=== PATIENT | male | born 1950 | race Caucasian/White ===

== ENCOUNTER 2019-03-01 00:28 | Inpatient (IN) | payer MEDICARE ==
[2019-03-01] VITALS (14 sets, daily range): BP systolic 95–128; BP diastolic 36–77
[~2019-03-01] VITALS: Ht 170.2 cm; Wt 111.6 kg
--- NOTE | 2019-03-01 00:33 | ED.ADGEN ---
Past History Past Medical History: Anemia, Anxiety, Arthritis, Arrhythmia, Asthma, Bipolar, Bronchitis, CAD, CHF, Constipation, COPD, CVA, Depression, Diabetes, GERD, High Cholesterol, Heart Disease, Hypertension, Hypothyroid, Lung Disease, [place], Renal Disease, Schizophrenia, Stroke, TIA, Other Past Surgical History: Coronary Bypass Surgery, Other Smoking: Cigarettes Alcohol Use: Occasionally Adult General Chief Complaint Chief Complaint ". .. I went to get up.. to go to bed.. but I got dizzy... I fell and hit the back of my head... I still tried to crawl to bed.. but I was to dizzy and to sore to make it..".." HPI HPI Patient is a 68 year old male ID pt. who presents with above history and complaints of dizziness, syncope and head injury. Pt normally follows at ID, but defer to [facility] [place]. Patient is oxygen-dependent COPD at 3 L, , hx CADZ with bypass., DM, CVA hx. and multiple medical issues. Pt. had a dizzy syncope episode with fall striking his head. Pt. feels he had a transient episode of loss of consciousness. The dizziness prior to fall has never resolved, when he attempts to stand or sit up. Patient denies any new focal signs other than his complaints of dizziness from his prior CVAs. Patient does continue to smoke. Has oxygen dependent at 3 L on presentation. Patient gives a current problem list of asthma, nontraumatic rupture achilles tendon, arthritis, hyperlipidemia, anxiety disorder, depression, post traumatic stress disorder, diabetes, COPD, personality disorder, hypertension, diabetic neuropathy, insomnia, schizoaffective disorder, urgent rhinitis, GERD, night terrors, prostatic hyperplasia ventral hernia, chronic systolic heart failure, coronary artery disease, fibromyalgia, frequent falls, fractured metatarsal, constipation, left bundle branch block, obesity, chronic renal insufficiency, chronic pain, bipolar, pneumonia episodes, bronchitis, angina, and history of MRSA. Pt. is a resident of [facility]. Pt. states he's been compliant with his chronic meds and does not think he took an extra dose of hypertension meds in the last 24 hours. In the ED his blood pressure remained low and he became dizzy anytime he attempted to stand or set up. Review of Systems Review of Systems Constitutional: Denies fever or chills [] Eyes: Denies change in visual acuity, redness, or eye pain [] HENT: Denies nasal congestion or sore throat []complaints of head injury Respiratory: Denies cough or shortness of breath [] Cardiovascular: No additional information not addressed in HPI [] GI: Denies abdominal pain, nausea, vomiting, bloody stools or diarrhea [] : Denies dysuria or hematuria [] Musculoskeletal: Denies back pain or joint pain [] Integument: Denies rash or skin lesions [] Neurologic: Complaints of headache, denies any new, focal weakness or sensory changes. Patient complaints of dizziness Endocrine: Denies polyuria or polydipsia [] All other systems were reviewed and found to be within normal limits, except as documented in this note. Family History Family History Noncontributory Current Medications Current Medications See nursing for home medications Allergies Allergies Penicillin diazepam Physical Exam Physical Exam Constitutional: Moderate acute distress, non-toxic appearance. [] HENT: Normocephalic, 4 x 4 centimeter hematoma right scalp, bilateral external ears normal, oropharynx moist, no oral exudates, nose normal. [] Eyes: PERRLA, EOMI, conjunctiva mild injection, no discharge. [] Neck: Has midline Cervical tenderness,, no stridor. [] Cardiovascular:Heart rate regular rhythm, no murmur, PMI to the left Lungs & Thorax: Bilateral breath equal at apex with scattered wheezing throughout on auscultation []midline scar and subclavian scars Abdomen: Bowel sounds normal, soft, no tenderness, no masses, no pulsatile masses. [] Obese. Old surgery scars Skin: Warm, dry, Areas of skin lesions that have been picked. Poor turgor Back: No tenderness, no CVA tenderness. [] Extremities: No tenderness, no cyanosis, no clubbing, ankle edema. [] Does complain of tenderness in joints with movement-chronic problem Neurologic: Alert and oriented X 3, moves all extremities on request, decreased plantar sensory function, she reports no new focal defects from his previous strokes with the exception of dizziness] Psychologic: Affect anxious, judgement normal, mood normal. [] Current Patient Data Vital Signs Vital Signs Date Time Temp Pulse Resp B/P (MAP) Pulse Ox O2 Delivery O2 Flow Rate FiO2 03/01/19 00:32 72 20 126/102 (110) 98 Nasal Cannula 3.0 Lab Results Laboratory Tests Test 03/01/19 00:35 White Blood Count 10.9 x10^3/uL (4.0-11.0) Red Blood Count 3.93 x10^6/uL (4.30-5.70) L Hemoglobin 12.0 g/dL (13.0-17.5) L Hematocrit 36.3 % (39.0-53.0) L Mean Corpuscular Volume 92 fL (79-100) Mean Corpuscular Hemoglobin 31 pg (25-35) Mean Corpuscular Hemoglobin Concent 33 g/dL (31-37) Red Cell Distribution Width 14.5 % (11.5-14.5) Platelet Count 200 x10^3/uL (140-400) Neutrophils (%) (Auto) 70 % (31-73) Lymphocytes (%) (Auto) 17 % (24-48) L Monocytes (%) (Auto) 9 % (0-9) Eosinophils (%) (Auto) 4 % (0-3) H Basophils (%) (Auto) 1 % (0-3) Neutrophils # (Auto) 7.6 x10^3uL (1.8-7.7) Lymphocytes # (Auto) 1.8 x10^3/uL (1.0-4.8) Monocytes # (Auto) 1.0 x10^3/uL (0.0-1.1) Eosinophils # (Auto) 0.5 x10^3/uL (0.0-0.7) Basophils # (Auto) 0.1 x10^3/uL (0.0-0.2) Erythrocyte Sedimentation Rate 35 (0-15) H Prothrombin Time 10.6 SEC (9.4-11.4) Prothrombin Time INR 1.0 (0.9-1.1) Activated Partial Thromboplast Time 25 SEC (23-33) D-Dimer (Shalini) 4.15 mg/L (0.00-0.50) H Sodium Level 136 mmol/L (136-145) Potassium Level 4.5 mmol/L (3.5-5.1) Chloride Level 99 mmol/L (98-107) Carbon Dioxide Level 25 mmol/L (21-32) Anion Gap 12 (6-14) Blood Urea Nitrogen 61 mg/dL (8-26) H Creatinine 2.6 mg/dL (0.7-1.3) H Estimated GFR (Cockcroft-Gault) 24.7 Glucose Level 163 mg/dL (70-99) H Calcium Level 8.4 mg/dL (8.5-10.1) L Magnesium Level 2.4 mg/dL (1.8-2.4) Total Bilirubin 0.4 mg/dL (0.2-1.0) Direct Bilirubin 0.1 mg/dL (0.0-0.2) Aspartate Amino Transferase (AST) 16 U/L (15-37) Alanine Aminotransferase (ALT) 16 U/L (16-63) Alkaline Phosphatase 80 U/L (46-116) Creatine Kinase 87 U/L (39-308) Troponin I Quantitative < 0.017 ng/mL (0-0.055) KM-Esx-J-Type Natriuretic Peptide 1002 pg/mL (0-124) H Total Protein 7.0 g/dL (6.4-8.2) Albumin 3.4 g/dL (3.4-5.0) Lipase 110 U/L (73-393) EKG EKG EKG shows a sinus rhythm at 68 bpm interventricular block[], leftward axis Radiology/Procedures Radiology/Procedures [[address] [address] IMAGING REPORT Signed PATIENT: PARMINDER EDMOND ACCOUNT: [id number] : 1950 LOCATION: ICU AGE: 68 SEX: M EXAM STATUS: ADM IN ORD. PHYSICIAN: ROLDAN WHITFIELD MD REASON: central line placement PROCEDURE: CHEST AP ONLY CHEST AP ONLY Clinical History: Central line placement Technique: AP view of the chest was obtained at 03/01/2019 5:06 AM. Comparison: 12:49 AM. Findings: The cardiomediastinal silhouette is normal. The pulmonary vasculature is normal. The lungs and pleural margins are clear. There are median sternotomy wires. There has been interval placement of a left subclavian line is tip is seen in the high SVC near the confluence of great veins. There is no pneumothorax. Impression: No evidence of an acute cardiopulmonary process. The left subclavian line has its tip in the high SVC near the confluence of the great veins. It may be helpful to advance this line approximately 6 cm. Electronically signed by: Carlos Douglas III, MD (03/01/2019 6:16 AM) [facility] DICTATED AND SIGNED BY: CARLOS DOUGLAS III, MD DATE: 03/01/19 0680 CC: ROLDAN WHITFIELD MD; YELENA GARCIA MD; PCP,UNKNOWN ~ [place] [address] IMAGING REPORT Signed PATIENT: PARMINDER EDMOND ACCOUNT: [id number] : 1950 LOCATION: ER AGE: 68 SEX: M EXAM STATUS: REG ER ORD. PHYSICIAN: ROLDAN WHITFIELD MD REASON: Dizzy , fall, CADZ, O2 dep. COPD PROCEDURE: PORTABLE CHEST 1V PORTABLE CHEST 1V Clinical History: Dizziness fall Technique: AP view of the chest was obtained at 03/01/2019 12:33 AM. Comparison: None. Findings: There is mediastinal wires. The heart is top normal limits in size. Multivessel peripheral. There is vague linear opacities in the lung bases. Impression: Mild basal infiltrates likely discoid atelectasis. Electronically signed by: Carlos Douglas III, MD (03/01/2019 1:09 AM) [facility] DICTATED AND SIGNED BY: CARLOS DOUGLAS III, MD DATE: 03/01/19 010 CC: ROLDAN WHITFIELD MD; PCP,NO ~ ][address] [address] IMAGING REPORT Signed PATIENT: PARMINDER EDMOND ACCOUNT: [id number] : 1950 LOCATION: ER AGE: 68 SEX: M EXAM STATUS: REG ER ORD. PHYSICIAN: ROLDAN WHITFIELD MD REASON: Head Injury, fall, dizzy PROCEDURE: CT HEAD AND CERVICAL SPINE WO CT Head W/O Contrast: History: Head injury fall dizzy Comparison: none Axial images were obtained without contrast. There is moderate diffuse atrophy. There is no mass effect, extraaxial fluid collections or hydrocephalus. There is an old left frontal lobe infarct and old right occipital parietal infarct. There is a small scalp hematoma posteriorly on the right. There is no focal loss of barron-white matter distinction to suggest acute ischemia, i.e. stroke. Impression: Old infarcts. No acute intracranial findings. End impression CT C-Spine without contrast: Clinical History: Technique: Axial helical images of the cervical spine were obtained without contrast, axial coronal and sagittal reconstruction was performed. Findings: There is no loss of vertebral body stature. There is no prevertebral soft tissue swelling. The vertebral bodies are well aligned. The C1-C2 relationship is normal. There is fusion of the C5-C6 vertebral bodies. Evaluation of the central canal is limited without contrast. There is multiple posterior disc bulges resulting in flattening of the thecal sac. There does not appear to be gross flattening of the cervical cord. There is moderate narrowing of multiple neuroforamen. Impression: No acute findings. Clinical correlation suggested. PQRS Compliance Statement: One or more of the following individualized dose reduction techniques were utilized for this examination: 1. Automated exposure control 2. Adjustment of the mA and/or kV according to patient size 3. Use of iterative reconstruction technique Electronically signed by: Carlos Douglas III, MD (03/01/2019 1:16 AM) [facility] DICTATED AND SIGNED BY: CARLOS DOUGLAS III, MD DATE: 03/01/19 0116 CC: ROLDAN WHITFIELD MD; PCP,NO ~ Course & Med Decision Making Course & Med Decision Making Pertinent Labs and Imaging studies reviewed. (See chart for details) Procedure note- Central line placement- patient persisted to have dizziness and hypotension- reviewed risks and benefits of central line placement patient in agreement for placement. Jewel technique used. hat, drapes, gloves face mask. Prepped, IJ and Lt subclavian. Obtained a cannulation of left subclavian by Seldinger technique. Line sutured in place. No obvious pneumothorax post procedure. Levo fed drip started. Stress presentation testing and treatment plan with . Will be admitted for further evaluation and treatment and cardiology consult. Suspect possible drug interaction or overdose of these hypertensive meds. When blood pressure was increased to the systolic range of 100 to his dizziness symptoms resolved. Critical Care- 90 min. [] Final Impression Final Impression 1. Dizzy/ Syncope 2. Fall 3. Head Injury- contusion 4. Hx. COPD- Oxy. Dependent at 3 L 5. Hx. of CADz and CHF 6. Hx of CVA 7. Elevated BNP 1002 8. Anemia Hgb 12 9. Elevated Sed 35 10.DM 163 11. Tobacco Use 12. Elevated D-dimer 4.15 13. Chronic Renal Insuf. Bun 61/Creat 2.6 14, . Multiple Medical Issues Dragon Disclaimer Dragon Disclaimer This electronic medical record was generated, in whole or in part, using a voice recognition dictation system. Dragon Disclaimer This chart was dictated in whole or in part using Voice Recognition software in a busy, high-work load, and often noisy Emergency Department environment. It may contain unintended and wholly unrecognized errors or omissions. ROLDAN WHITFIELD MD Mar 01, 2019 00:33
[2019-03-01 01:00] LABS: BASO # 0.1 x10^3/uL (0.0-0.2); BASO % 1 % (0-3); EOS # 0.5 x10^3/uL (0.0-0.7); EOS % 4 % (0-3); HEMATOCRIT 36.3 % (39.0-53.0); LYMPH # 1.8 x10^3/uL (1.0-4.8); LYMPH % 17 % (24-48); MEAN CORPUSCULAR HEMOGLOBIN 31 pg (25-35); MEAN CORPUSCULAR HGB CONC 33 g/dL (31-37); MEAN CORPUSCULAR VOLUME 92 fL (79-100); MONO % 9 % (0-9); NEUT # 7.6 x10^3uL (1.8-7.7); NEUT % 70 % (31-73); PLATELET COUNT 200 x10^3/uL (140-400); RED BLOOD COUNT 3.93 x10^6/uL (4.30-5.70); RED CELL DISTRIBUTION WIDTH 14.5 % (11.5-14.5); WHITE BLOOD COUNT 10.9 x10^3/uL (4.0-11.0)
--- NOTE | 2019-03-01 01:12 | RAD ---
PORTABLE CHEST 1V Clinical History: Dizziness fall Technique: AP view of the chest was obtained at 03/01/2019 12:33 AM. Comparison: None. Findings: There is mediastinal wires. The heart is top normal limits in size. Multivessel peripheral. There is vague linear opacities in the lung bases. Impression: Mild basal infiltrates likely discoid atelectasis. Electronically signed by: Juan Arora III, MD (03/01/2019 1:09 AM) [facility]
[2019-03-01 01:15] LABS: ALBUMIN 3.4 g/dL (3.4-5.0); CALCIUM 8.4 mg/dL (8.5-10.1); CREATININE 2.6 mg/dL (0.7-1.3); DIRECT BILIRUBIN 0.1 mg/dL (0.0-0.2); GFR 24.7; MAGNESIUM 2.4 mg/dL (1.8-2.4); POTASSIUM 4.5 mmol/L (3.5-5.1); TOTAL BILIRUBIN 0.4 mg/dL (0.2-1.0)
--- NOTE | 2019-03-01 01:19 | RAD ---
CT Head W/O Contrast: History: Head injury fall dizzy Comparison: none Axial images were obtained without contrast. There is moderate diffuse atrophy. There is no mass effect, extraaxial fluid collections or hydrocephalus. There is an old left frontal lobe infarct and old right occipital parietal infarct. There is a small scalp hematoma posteriorly on the right. There is no focal loss of barron-white matter distinction to suggest acute ischemia, i.e. stroke. Impression: Old infarcts. No acute intracranial findings. End impression CT C-Spine without contrast: Clinical History: Technique: Axial helical images of the cervical spine were obtained without contrast, axial coronal and sagittal reconstruction was performed. Findings: There is no loss of vertebral body stature. There is no prevertebral soft tissue swelling. The vertebral bodies are well aligned. The C1-C2 relationship is normal. There is fusion of the C5-C6 vertebral bodies. Evaluation of the central canal is limited without contrast. There is multiple posterior disc bulges resulting in flattening of the thecal sac. There does not appear to be gross flattening of the cervical cord. There is moderate narrowing of multiple neuroforamen. Impression: No acute findings. Clinical correlation suggested. PQRS Compliance Statement: One or more of the following individualized dose reduction techniques were utilized for this examination: 1. Automated exposure control 2. Adjustment of the mA and/or kV according to patient size 3. Use of iterative reconstruction technique Electronically signed by: Juan Arora III, MD (03/01/2019 1:16 AM) [facility]
[2019-03-01] MEDS ORDERED: IV RINGERS SOLUTION,LACTATED 1,000 ML IV SCH (01:30)
[2019-03-01 02:12] LABS: SEDIMENTATION RATE 35 (0-15)
[2019-03-01] MEDS ORDERED: ONDANSETRON PF 4 MG/2 ML VIAL. IV PRN (02:45)
[2019-03-01] MEDS ORDERED: ACETAMINOPHEN 325 MG TABLET PO PRN ×2 (02:45→15:00)
[2019-03-01] MEDS ORDERED: ENOXAPARIN ** NOTE DOSE ** SYRINGE SQ ONE (03:00)
[2019-03-01] MEDS ORDERED: FUROSEMIDE 40 MG/4 ML VIAL IVP ONE ×2 (03:00→06:00)
--- NOTE | 2019-03-01 03:02 | EKG ---
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
[2019-03-01] MEDS ORDERED: ANTI-COAG MONITOR BY PHARMACY. MC PRN (03:15)
[2019-03-01] MEDS ORDERED: NOREPINEPHRINE BITARTRATE 4 MG/4 ML VIAL. IV ONE (04:38)
[2019-03-01] MEDS ORDERED: IV NORMAL SALINE 250ML 250 ML ONE (04:38)
[2019-03-01] MEDS ORDERED: NOREPINEPHRINE BITARTRATE 8 MG in IV NORMAL SALINE 250ML 250 ML IV PRN ×2 (05:00→05:15)
--- NOTE | 2019-03-01 06:19 | RAD ---
CHEST AP ONLY Clinical History: Central line placement Technique: AP view of the chest was obtained at 03/01/2019 5:06 AM. Comparison: 12:49 AM. Findings: The cardiomediastinal silhouette is normal. The pulmonary vasculature is normal. The lungs and pleural margins are clear. There are median sternotomy wires. There has been interval placement of a left subclavian line is tip is seen in the high SVC near the confluence of great veins. There is no pneumothorax. Impression: No evidence of an acute cardiopulmonary process. The left subclavian line has its tip in the high SVC near the confluence of the great veins. It may be helpful to advance this line approximately 6 cm. Electronically signed by: Juan Arora III, MD (03/01/2019 6:16 AM) [facility]
--- NOTE | 2019-03-01 08:45 | NUR ---
Admit to room icu bed 3 via cart accompanied by staff. Alert and oriented, vs stable on levophed drip at 1 mcg/hr , c/o chronic generalized arthritic pain. Oriented to room and explained all procedures.
[2019-03-01] MEDS ORDERED: ASPIRIN 81 MG TAB.CHEW PO SCH (09:00)
[2019-03-01] MEDS ORDERED: AMIT25TA PO (10:04)
[2019-03-01] MEDS ORDERED: CHOL10003 PO (10:04)
[2019-03-01] MEDS ORDERED: IPRA3AMP29 NEB (10:04)
[2019-03-01] MEDS ORDERED: ERGO500027 PO (10:04)
[2019-03-01] MEDS ORDERED: FLUO40CA2 PO (10:04)
[2019-03-01] MEDS ORDERED: ACET325T9 PO (10:04)
[2019-03-01] MEDS ORDERED: BUDE180A IH (10:04)
[2019-03-01] MEDS ORDERED: ALOG25TA2 PO (10:04)
[2019-03-01] MEDS ORDERED: ASPI81TA50 PO (10:04)
[2019-03-01] MEDS ORDERED: AMMO57LO TP (10:04)
[2019-03-01 10:09] LABS: AMPHETAMINE/METHAMPHETAMINE NEG (NEG); BARBITURATES NEG (NEG); BENZODIAZEPINES NEG (NEG); CANNABINOIDS NEG (NEG); COCAINE NEG (NEG); METHADONE NEG (NEG); OPIATES NEG (NEG); PHENCYCLIDINE NEG (NEG)
[2019-03-01] MEDS ORDERED: FURO40TA4 PO (10:09)
[2019-03-01] MEDS ORDERED: GABA-586 PO (10:09)
[2019-03-01] MEDS ORDERED: GLIP10TA13 PO (10:09)
[2019-03-01 10:21] LABS: BACTERIA,URINE 0 /HPF (0-FEW); BILIRUBIN,URINE NEG (NEG); CLARITY,URINE HAZY; COLOR,URINE YELLOW; GLUCOSE,URINE >=1000 mg/dL (NEG); NITRITE,URINE NEG (NEG); RBC,URINE OCC /HPF (0-2); UROBILINOGEN,URINE 0.2 mg/dL (0.2 mg/dL)
[2019-03-01 10:22] LABS: GRANULAR CASTS,URINE FEW /HPF; HYALINE CASTS, URINE FEW /HPF
[2019-03-01 10:23] LABS: SQUAMOUS EPITHELIAL CELL,UR FEW /LPF
[2019-03-01] MEDS ORDERED: NICO-479 BC (10:27)
[2019-03-01] MEDS ORDERED: POTA20TA4 PO (10:27)
[2019-03-01] MEDS ORDERED: PRAZ5CAP2 PO (10:27)
[2019-03-01] MEDS ORDERED: METO-247 PO (10:27)
[2019-03-01] MEDS ORDERED: QUET400T4 PO (10:27)
[2019-03-01] MEDS ORDERED: PRAZ2CAP2 PO (10:27)
[2019-03-01] MEDS ORDERED: XOPENEX HFA15 GM IH (10:27)
[2019-03-01] MEDS ORDERED: MONT10TA80 PO (10:27)
[2019-03-01] MEDS ORDERED: TIOT18CA IH (10:27)
[2019-03-01] MEDS ORDERED: MELO15TA23 PO (10:27)
[2019-03-01] MEDS ORDERED: ISOS60TA2 PO (10:27)
[2019-03-01] MEDS: IPRATRPIUM/ALBUTEROL 0.5/2.5MG 3 ML NEBU. NEB SCH ×3 (11:37→20:39)
--- NOTE | 2019-03-01 12:16 | PDOC2 ---
CONSULT Date of Admission DATE: 03/01/19 TIME: 12:16 Reason for Consult: Syncope Referring Physician: Dr. Prather Chief Complaint Syncope Source: Chart review, Patient Problem List Problems Medical Problems: (1) Syncope Status: Acute History of Present Illness 68-year-old male with history of coronary artery disease s/p CABG, ischemic cardiomyopathy, usually followed by Dr. Ruff at [facility] apparently was time to get out of his bed when he had an episode of syncope. He tried to get up again and passed out and hit his head. He denied any chest pain, orthopnea/PND, palpitations. Past Medical History CAD s/p CABG 2009 with recent cardiac catheterization January 2019 showing patent QUINN to LAD, patent SVG to diagonal and patent SVG to OM. Ischemic cardiomyopathy with recent 2-D echo in January 2019 showing EF 40%. He was apparently on LifeVest that was taken off secondary to improvement in EF. Hypertension COPD Anxiety/depression/bipolar disorder Hyperlipidemia Diabetes mellitus type 2 Hypothyroidism TIA/stroke Chronic kidney disease Past Surgical History Coronary artery bypass surgery Family History not contributory Social History Patient smokes 8 cigarettes on a daily basis and admitted to occasional intake of alcohol. He used to smoke marijuana several years ago but denied any recent drug use. Current Medications Current Medications Lactated Ringer's 1,000 ml @ 100 mls/hr Q10H IV Last administered on 03/01/19 at 01:13; Start 03/01/19 at 01:30; Stop 03/01/19 at 11:29; Status DC Enoxaparin Sodium (Lovenox 100mg Syringe) 100 mg 1X ONCE SQ Last administered on 03/01/19at 03:48; Start 03/01/19 at 03:00; Stop 03/01/19 at 03:01; Status DC Furosemide (Lasix) 40 mg 1X ONCE IVP ; Start 03/01/19 at 03:00; Stop 03/01/19 at 03:01; Status DC Ondansetron HCl (Zofran) 4 mg PRN Q4HRS PRN IV NAUSEA/VOMITING; Start 03/01/19 at 02:45; Stop 03/02/19 at 02:44 Acetaminophen (Tylenol) 650 mg PRN Q4HRS PRN PO FEVER; Start 03/01/19 at 02:45; Stop 03/02/19 at 02:44 Albuterol/ Ipratropium (Duoneb) 3 ml RTQID NEB Last administered on 03/01/19at 11:37; Start 03/01/19 at 08:00; Stop 03/02/19 at 07:59 Enoxaparin Sodium (Lovenox 100mg Syringe) 100 mg BID SQ ; Start 03/01/19 at 21:00 Aspirin (Children'S Aspirin) 81 mg DAILY PO ; Start 03/01/19 at 09:00 Furosemide (Lasix) 40 mg 1X ONCE IVP ; Start 03/01/19 at 06:00; Stop 03/01/19 at 06:01; Status DC Info (Anti-Coagulation Monitoring By Pharmacy) 1 each PRN DAILY PRN MC SEE COMMENTS; Start 03/01/19 at 03:15 Sodium Chloride 250 ml @ As Directed STK-MED ONCE .ROUTE ; Start 03/01/19 at 04:38; Stop 03/01/19 at 04:38; Status DC Norepinephrine Bitartrate (Levophed) 4 mg STK-MED ONCE IV ; Start 03/01/19 at 04:38; Stop 03/01/19 at 04:38; Status DC Norepinephrine Bitartrate 8 mg/ Sodium Chloride 258 ml @ 20.626 mls/ hr CONT PRN IV SEE I/O RECORD Last administered on 03/01/19at 05:06; Start 03/01/19 at 05:00 Norepinephrine Bitartrate 8 mg/ Sodium Chloride 258 ml @ 20.626 mls/ hr CONT PRN IV SEE I/O RECORD; Start 03/01/19 at 05:15; Stop 03/01/19 at 05:09; Status DC Active Scripts Active Reported Spiriva (Tiotropium [employer]) 18 Mcg Cap.w.dev 1 Cap IH DAILY Seroquel (Quetiapine Fumarate) 400 Mg Tablet 1 Tab PO QHS Prazosin Hcl 2 Mg Capsule 1 Cap PO QHS Prazosin Hcl 5 Mg Capsule 1 Cap PO QHS Klor-Con M20 (Potassium Chloride) 20 Meq Tab.er.prt 1 Tab PO DAILY 30 Days Nicotine Lozenge (Nicotine Polacrilex) 2 Mg Lozenge 2 Mg BC PRN Q2HR PRN Singulair Tablet (Montelukast Sodium) 10 Mg Tablet 10 Mg PO DAILY Metoprolol Succinate ( Xl ) (Metoprolol Succinate) 100 Mg Tab.er.24h 1 Tab PO DAILY Meloxicam 15 Mg Tablet 1 Tab PO DAILY 30 Days Xopenex Hfa (Levalbuterol Tartrate) 15 Gm Hfa.aer.ad 2 Puff IH PRN Q4-6HRS PRN Isosorbide Mononitrate Er (Isosorbide Mononitrate) 60 Mg Tab.er.24h 1 Tab PO DAILY Glipizide 10 Mg Tablet 2 Tab PO BID Gabapentin (Gabapentin) 300 Mg Capsule 300 Mg PO TID Furosemide 40 Mg Tablet 1 Tab PO BIDWBKFT/LUIS ALBERTO Fluoxetine Hcl 40 Mg Capsule 1 Cap PO DAILYWBKFT Vitamin D2 (Ergocalciferol (Vitamin D2)) 50,000 Unit Capsule 1 Cap PO WEEKLY 28 Days Vitamin D3 (Cholecalciferol (Vitamin D3)) 1,000 Unit Tablet 2 Tab PO DAILY Pulmicort Flexhaler (Budesonide) 180 Mcg Aer.pow.ba 2 Puff IH BID Aspir-Low (Aspirin) 81 Mg Tablet.dr 1 Tab PO DAILY Amlactin (Ammonium Lactate) 57 Gm Lotion 57 Gm TP PRN BID PRN Amitriptyline Hcl 25 Mg Tablet 1 Tab PO QHS Alogliptin (Alogliptin Benzoate) 25 Mg Tablet 25 Mg PO DAILY Duoneb 0.5-3(2.5) Mg/3 Ml (Albuterol/Ipratropium) 3 Ml Ampul.neb 3 Ml NEB QID Tylenol (Acetaminophen) 325 Mg Tablet 2 Tab PO PRN Q4HRS Allergies: Coded Allergies: Penicillins (Verified Allergy, Unknown, 03/01/19) aripiprazole (Verified Allergy, Unknown, 03/01/19) diazepam (Verified Allergy, Unknown, 03/01/19) PSYCHOLOGICAL ROS: No: Hallucinations Eyes: No: Loss of vision HEENT: No: Sneezing Respiratory: No: Shortness of breath Cardiovascular: No: Chest Pain Gastrointestinal: No: Nausea, Vomiting Neurological: YES: Other (syncope); No: Seizures Skin: No: Rash General: Alert, Oriented X3 HEENT: Atraumatic Lungs: Clear to auscultation Heart: Regular rate Abdomen: Soft Extremities: No edema Psych/Mental Status: Mood NL VITALS Vital Signs Date Time Temp Pulse Resp B/P (MAP) Pulse Ox O2 Delivery O2 Flow Rate FiO2 03/01/19 11:37 97 Nasal Cannula 2.0 03/01/19 11:07 76 20 104/36 (58) 03/01/19 09:00 97.5 Labs Laboratory Tests Test 03/01/19 00:35 03/01/19 09:50 03/01/19 12:01 White Blood Count 10.9 x10^3/uL (4.0-11.0) Red Blood Count 3.93 x10^6/uL (4.30-5.70) Hemoglobin 12.0 g/dL (13.0-17.5) Hematocrit 36.3 % (39.0-53.0) Mean Corpuscular Volume 92 fL (79-100) Mean Corpuscular Hemoglobin 31 pg (25-35) Mean Corpuscular Hemoglobin Concent 33 g/dL (31-37) Red Cell Distribution Width 14.5 % (11.5-14.5) Platelet Count 200 x10^3/uL (140-400) Neutrophils (%) (Auto) 70 % (31-73) Lymphocytes (%) (Auto) 17 % (24-48) Monocytes (%) (Auto) 9 % (0-9) Eosinophils (%) (Auto) 4 % (0-3) Basophils (%) (Auto) 1 % (0-3) Neutrophils # (Auto) 7.6 x10^3uL (1.8-7.7) Lymphocytes # (Auto) 1.8 x10^3/uL (1.0-4.8) Monocytes # (Auto) 1.0 x10^3/uL (0.0-1.1) Eosinophils # (Auto) 0.5 x10^3/uL (0.0-0.7) Basophils # (Auto) 0.1 x10^3/uL (0.0-0.2) Erythrocyte Sedimentation Rate 35 (0-15) Prothrombin Time 10.6 SEC (9.4-11.4) Prothromb Time International Ratio 1.0 (0.9-1.1) Activated Partial Thromboplast Time 25 SEC (23-33) D-Dimer (Shalini) 4.15 mg/L (0.00-0.50) Sodium Level 136 mmol/L (136-145) Potassium Level 4.5 mmol/L (3.5-5.1) Chloride Level 99 mmol/L (98-107) Carbon Dioxide Level 25 mmol/L (21-32) Anion Gap 12 (6-14) Blood Urea Nitrogen 61 mg/dL (8-26) Creatinine 2.6 mg/dL (0.7-1.3) Estimated GFR (Cockcroft-Gault) 24.7 Glucose Level 163 mg/dL (70-99) Calcium Level 8.4 mg/dL (8.5-10.1) Magnesium Level 2.4 mg/dL (1.8-2.4) Total Bilirubin 0.4 mg/dL (0.2-1.0) Direct Bilirubin 0.1 mg/dL (0.0-0.2) Aspartate Amino Transf (AST/SGOT) 16 U/L (15-37) Alanine Aminotransferase (ALT/SGPT) 16 U/L (16-63) Alkaline Phosphatase 80 U/L (46-116) Creatine Kinase 87 U/L (39-308) Troponin I Quantitative < 0.017 ng/mL (0-0.055) JI-Zpv-E-Type Natriuretic Peptide 1002 pg/mL (0-124) Total Protein 7.0 g/dL (6.4-8.2) Albumin 3.4 g/dL (3.4-5.0) Lipase 110 U/L (73-393) Thyroid Stimulating Hormone (TSH) 1.504 uIU/mL (0.358-3.740) Urine Collection Type Unknown Urine Color Yellow Urine Clarity Hazy Urine pH 5.0 Urine Specific [place] 1.010 Urine Protein Neg (NEG-TRACE) Urine Glucose (UA) >=1000 mg/dL (NEG) Urine Ketones (Stick) Neg mg/dL (NEG) Urine Blood Neg (NEG) Urine Nitrite Neg (NEG) Urine Bilirubin Neg (NEG) Urine Urobilinogen Dipstick 0.2 mg/dL (0.2 mg/dL) Urine Leukocyte Esterase Neg (NEG) Urine RBC Occ /HPF (0-2) Urine WBC 1-4 /HPF (0-4) Urine Squamous Epithelial Cells Few /LPF Urine Transitional Epithelial Cells Occ /LPF Urine Bacteria 0 /HPF (0-FEW) Urine Hyaline Casts Few /HPF Urine Granular Casts Few /HPF Urine Mucus Slight /LPF Urine Opiates Screen Neg (NEG) Urine Methadone Screen Neg (NEG) Urine Barbiturates Neg (NEG) Urine Phencyclidine Screen Neg (NEG) Urine Amphetamine/Methamphetamine Neg (NEG) Urine Benzodiazepines Screen Neg (NEG) Urine Cocaine Screen Neg (NEG) Urine Cannabinoids Screen Neg (NEG) Urine Ethyl Alcohol Neg (NEG) Glucose (Fingerstick) 319 mg/dL (70-99) Assessment/Plan 1. Syncope most probably secondary to dehydration/hypovolemia. BUN/Cr prerenal picture. Recommend intravenous hydration. Hold diuretics for now and resume at lower dose prior to discharge. We will consider event monitor as outpatient to rule out any significant arrhythmias. 2. Coronary artery disease s/p CABG in 2009 with recent cardiac catheterization in January 2019 showing patent QUINN to LAD, patent SVG to diagonal and patent SVG to OM. He is presently chest pain-free. Continue current secondary prevention measures. 3. Chronic systolic heart failure, ischemic cardio myopathy with LVEF 40% in January 2019. BNP slightly elevated but CXR and clinical exam not consistent with CHF. Continue current medical regimen. 4. Hypertension: Controlled 5. Diabetes mellitus type 2: Treated per IM Thank you for your consultation INES PRIETO MD Mar 01, 2019 12:16
[2019-03-01] MEDS ORDERED: DEXTROSE 50% 25 GM / 50ML DISP.SYRIN. IV PRN (12:45)
--- NOTE | 2019-03-01 14:01 | RAD ---
EXAM: Bilateral lower extremity venous Doppler. HISTORY: Bilateral lower extremity pain/swelling. Elevated d-dimer. COMPARISON: None. FINDINGS: Grayscale and Doppler analysis of the both lower extremity deep venous systems was performed with graded compression and augmentation. The common femoral, greater saphenous, superficial femoral, popliteal and calf veins were assessed. There is no evidence of deep venous thrombosis. IMPRESSION: 1. No evidence of deep venous thrombosis. Electronically signed by: Courtney Kang MD (03/01/2019 1:58 PM) [facility]
--- NOTE | 2019-03-01 14:14 | RAD ---
EXAM: Carotid Doppler sonogram. HISTORY: Cerebral infarction. TECHNIQUE: Sullivan scale and color Doppler sonographic evaluation of the neck with spectral waveform analysis was performed and static images are submitted for review. FINDINGS: The peak systolic velocity within the right common carotid artery is 130 cm/sec. The peak systolic velocity within the right internal carotid artery is 112 cm/sec and the end diastolic velocity within the right internal carotid artery is 33 cm/sec. The right ICA/CCA ratio is 0.86. The peak systolic velocity within the left common carotid artery is 181 cm/sec. The peak systolic velocity within the left internal carotid artery is 118 cm/sec and the end diastolic velocity within the left internal carotid artery is 35 cm/sec. The left ICA/CCA ratio is 0.65. There is normal antegrade flow within both vertebral arteries. IMPRESSION: No evidence of greater than 50 percent stenosis involving the internal carotid arteries. PQRS Compliance Statement - Stenosis calculations for CT, MR and conventional angiography are based upon measurement of the distal ICA diameter in accordance with the NASCET methodology. Stenosis calculations for carotid ultrasound studies are derived from validated velocity criteria which are known to correlate with the NASCET methodology. Electronically signed by: Annika Justin MD (03/01/2019 2:11 PM) [facility]
[2019-03-01] MEDS ORDERED: NON FORMULARY ITEM (Levalbuterol Tartrate (Xopenex Hfa) 2 PUFF) IH PRN (15:00)
[2019-03-01] MEDS ORDERED: AMMONIUM LACTATE 12% TOPICAL LOTION 226GM BOTTLE. TP PRN (15:00)
[2019-03-01] MEDS ORDERED: NICOTINE POLACRILEX GUM 2 MG GUM. BC PRN (15:45)
[2019-03-01] MEDS ORDERED: MELOXICAM 15 MG TABLET. PO ONE (16:00)
[2019-03-01] MEDS ORDERED: NAPROXEN 500 MG TABLET PO PRN (16:30)
[2019-03-01] MEDS ORDERED: IPRATRPIUM/ALBUTEROL 0.5/2.5MG 3 ML NEBU. NEB SCH (17:00)
[2019-03-01] MEDS: INSULIN LISPRO 300 UNITS/3 ML VIAL. SQ SCH (17:00)
[2019-03-01] MEDS: glipiZIDE 5 MG TABLET PO SCH (17:07)
--- NOTE | 2019-03-01 17:11 | RAD ---
Ventilation perfusion exam History: Syncope Comparison: None Findings: Ventilation perfusion examination was performed. Ventilation images were acquired after the patient inhaled 11.0 mCi of technetium 99 DTPA. Perfusion images were acquired after the patient was injected with 5.5 mCi of technetium 99m MAA. There is moderate heterogeneity of radiotracer on perfusion images. No mismatched perfusion defect is identified. Impression: Intermediate probability for pulmonary embolic disease. Electronically signed by: Geoffrey Pretty MD (03/01/2019 5:08 PM) [facility]
--- NOTE | 2019-03-01 17:24 | RAD ---
EXAM: Right ankle, 3 views. HISTORY: Fall. COMPARISON: None. FINDINGS: 3 views of the right ankle are obtained. There is a nondisplaced inferior medial malleolar fracture. There is a tiny corticated ossicle inferior to the lateral malleolus which is chronic in appearance. There is a tiny plantar spur. There is enthesopathy at the Achilles tendon insertion. There is soft tissue swelling. IMPRESSION: Nondisplaced medial malleolar fracture. Electronically signed by: Annika Justin MD (03/01/2019 5:21 PM) [facility]
[2019-03-01] MEDS: PRAZOSIN 1 MG CAPSULE. PO SCH (20:16)
[2019-03-01] MEDS: QUEtiapine 100 MG TABLET. PO SCH (20:17)
[2019-03-01] MEDS: GABAPENTIN 300 MG CAPSULE. PO SCH (20:17)
[2019-03-01] MEDS: AMITRIPTYLINE HCL 25 MG TABLET PO SCH (20:17)
[2019-03-01] MEDS: PRAZOSIN 5 MG CAPSULE. PO SCH (20:17)
[2019-03-01] MEDS: ENOXAPARIN ** NOTE DOSE ** SYRINGE SQ SCH (20:18)
[2019-03-01] MEDS: BUDESONIDE 0.5 MG/2 ML NEBU NEB SCH (20:39)
[2019-03-01] MEDS ORDERED: NON FORMULARY ITEM (Budesonide (Pulmicort Flexhaler) 2 PUFF) IH SCH (21:00)
[2019-03-01] MEDS: oxyCODONE/APAP 5/325 1 TAB TABLET PO PRN (22:25)
[2019-03-02] VITALS (24 sets, daily range): BP systolic 75–120; BP diastolic 36–70
--- NOTE | 2019-03-02 01:16 | RAD ---
3 views left knee AP lateral oblique HISTORY: Pain, multiple falls There is marginal spurring and joint loss of the medial compartment. There is no interruption of cortex suggestive of fracture. IMPRESSION: Degenerative changes. No acute findings. Electronically signed by: Juan Arora III, MD (03/02/2019 1:13 AM) [facility]
--- NOTE | 2019-03-02 03:31 | EKG ---
[address] [address] Test Date: 2019-03-01 Test Time: 00:38:27 Pat Name: PARMINDER EDMOND Department: Room: ICU03 1 Gender: M Telephonic Rn: : 1950 Requested By: ROLDAN WHITFIELD Order Number: [id number] Reading MD: Niknuj Eaton MD Measurements Intervals [place] Rate: 66 P: -2 WI: 210 QRS: -3 QRSD: 128 T: 90 QT: 452 QTc: 476 Interpretive Statements SINUS RHYTHM LAFB Electronically Signed On 03-16-2019 9:08:01 [employer]FER [employer] by Nikunj Eaton MD
--- NOTE | 2019-03-02 03:43 | HP ---
ADMIT DATE: 03/01/2019 HISTORY OF PRESENT ILLNESS: The patient is a 68-year-old male patient who apparently went to get up to go to bed and felt dizzy and fell and hit the back of his head. He tried to crawl to bed, but he was too dizzy and too sore to make it. He normally follows at the ID, but was referred to [facility]. He apparently is known to have oxygen dependent COPD at 2 liters, coronary artery disease, status post coronary artery bypass graft surgery, diabetes mellitus. He had felt dizzy and had a syncopal episode with fall striking his head. He said that he had a transient episode of loss of consciousness. The dizziness prior to fall had never resolved when he attempted to stand or sit up. He denied any new focal signs other than his complaint of dizziness from his prior CVA. He does unfortunately continue to smoke. He is oxygen dependent on 3 liters of oxygen. He has multitude of medical problems and was extensively evaluated in the Emergency Room including he has had an EKG, which showed he was in sinus rhythm at a heart rate of 68 beats per minute with intraventricular block. His chest x-ray showed no acute cardiopulmonary process. He has left subclavian line. The cardiomediastinal silhouette is normal. The pulmonary vasculature is normal. The lungs and pleural margins are clear. There are median sternotomy wires. The left subclavian line tip is seen in the high superior vena cava near the confluence of great veins. There is no pneumothorax. CT scan of his head showed that there is moderate diffuse atrophy. There is no mass effect, extraaxial fluid collection or hydrocephalus. There is an old left frontal lobe infarct and old right occipitoparietal infarct. There is small scalp hematoma posteriorly in the right. There is no focal loss of kirkland white matter distinction to suggest acute ischemia. CT scan of the cervical spine showed no acute finding. There is no loss of vertebral body stature. There is no prevertebral soft tissue swelling. The vertebral bodies are well aligned. C1-C2 relationship is normal. There is fusion of the C5-C6 vertebral bodies. Evaluation of central canal is limited without contrast. There are multiple posterior disk bulges resulting in flattening of the thecal sac. There does not appear to be gross flattening of the cervical cord. There is moderate narrowing in multiple neural foramina. He has had all the lab work. His lab work showed that his white cell count was 10,900, hemoglobin 12, hematocrit 36, MCV 92, and platelet count 200,000. His prothrombin time was 10.6, INR 1, aPTT was 25 and D-dimer was 4.15. His chemistry showed a serum sodium of 136, potassium 4.5, chloride 99, bicarbonate 25, anion gap of 12, BUN 61, creatinine was 2.6, estimated GFR was 24 mL per minute, his glucose 163, calcium was 8.4, magnesium 2.4. Total bilirubin, AST, ALT, alkaline phosphatase were normal. CK was 87. Beta natriuretic peptide was 1000. Total protein was 7, albumin was 3.4. Lipase was 110 and TSH was 1.504. His first set of cardiac enzymes showed troponin to be less than 0.017. Urinalysis showed the urine was yellow, hazy with a pH of 5, specific gravity of 1.010. The urine was negative for protein. There was large amount of glucose, negative for ketones, negative for blood, nitrite, bilirubin, leukocyte esterase, there are 1-4 rbc's and no bacteria. His toxic screen was essentially negative. The CT scan of the head and cervical spine showed that there is moderate diffuse atrophy. PHYSICAL EXAMINATION: GENERAL: On arrival to the Emergency Room, he was pale, no jaundice, cyanosis or thyromegaly. No jugular venous distention. No limb edema. VITAL SIGNS: His heart rate was 70, blood pressure was 83/38, temperature was 97.5, respiratory rate was 20, and oxygen saturation was 99% on 3 liters of oxygen. HEAD, EYES, EARS, NOSE AND THROAT: Showed normocephalic. He has a hematoma on the right posterior parietal area. NECK: Supple. HEART: Showed normal first and second heart sounds. No gallop or murmur. CHEST: Shows central trachea, equal bilateral expansion, air entry, vesicular sounds with scattered rhonchi bilaterally and crepitation mostly on the right side posteriorly. ABDOMEN: Distended, soft, nontender. No guarding or rigidity. No organomegaly. All hernial orifice intact. Bowel sounds normal. NEUROLOGIC: He was awake, alert, responding appropriately. All cranial nerves intact. EXTREMITIES: He moves extremities without difficulty. LABORATORY DIAGNOSTIC DATA: His lab work on admission showed a white cell count of 10,900, hemoglobin 12, hematocrit 36, MCV 92, and platelet count 200,000. His chemistry showed a serum sodium 136, potassium 4.5, chloride 99, bicarbonate 25, anion gap 12, BUN 61, creatinine 2.6, estimated GFR was 24 mL per minute. His glucose is 163, calcium 8.4, magnesium 2.4. His prothrombin time, INR and aPTT were normal. D-dimer was high at 4.15. Urinalysis was unremarkable and toxic screen was negative. ALLERGIES: HE IS ALLERGIC TO PENICILLIN, RABEPRAZOLE AND DIAZEPAM. FAMILY HISTORY: Noncontributory. SOCIAL HISTORY: He is , lives on his own. He has 3 daughters. He continues to smoke. He does not drink alcohol or use recreational drugs. MEDICATIONS: He is currently on the following medications: He is on ipratropium bromide, albuterol sulfate ____ mg 3 mL by nebulizer 4 times a day. He is on Spiriva HandiHaler 1 inhalation once a day, Xopenex 2 puffs every 4-6 hours, nicotine lozenges 2 mg every 2 hours, isosorbide mononitrate 60 mg once a day, ____ prazosin 2 mg at bedtime, metoprolol succinate 100 mg once a day, aspirin 81 mg once a day, meloxicam 15 mg daily, acetaminophen 650 mg every 4 hours, gabapentin 300 mg 3 times a day, amitriptyline 25 mg at bedtime, fluoxetine 40 mg with breakfast, Seroquel 400 mg at bedtime, potassium chloride 20 mEq once a day, furosemide 40 mg twice a day, Pulmicort Flexhaler 2 puffs twice a day, Singulair 10 mg at bedtime, alogliptin 25 mg once a day, glipizide 10 mg, he takes 2 tablets twice a day. He is on ammonium lactate, AmLactin, applied topically twice a day; cholecalciferol (vitamin D3) 2000 international unit once a day; ergocalciferol 1 capsule p.o. weekly. REVIEW OF SYSTEMS: As per history of present illness. ASSESSMENT AND PLAN: In summary, this is a 68-year-old male patient who was admitted with syncopal episode, probably multifactorial. He apparently has had bilateral lower extremity venous Doppler ultrasound, which showed no evidence of deep vein thrombosis. He had a carotid Doppler, which basically showed no evidence of greater than 50% stenosis involving the internal carotid arteries. My plan is given that he has elevated D-dimer, I will arrange for him to have a V/Q scan. I will reconcile all his medications and probably start him on steroids. We will follow him closely and see how he responds. We will taper down his Levophed and discontinue it altogether. YELENA GARCIA MD DR: BOSTON/michael JOB#: [id number] / [id number]
[2019-03-02] MEDS: IPRATRPIUM/ALBUTEROL 0.5/2.5MG 3 ML NEBU. NEB SCH ×4 (05:17→21:34)
[2019-03-02 06:45] LABS: BASO % 1 % (0-3); EOS # 0.4 x10^3/uL (0.0-0.7); EOS % 6 % (0-3); HEMOGLOBIN 11.4 g/dL (13.0-17.5); LYMPH # 2.3 x10^3/uL (1.0-4.8); LYMPH % 32 % (24-48); MEAN CORPUSCULAR HEMOGLOBIN 30 pg (25-35); MEAN CORPUSCULAR HGB CONC 33 g/dL (31-37); MEAN CORPUSCULAR VOLUME 92 fL (79-100); MONO # 0.9 x10^3/uL (0.0-1.1); MONO % 12 % (0-9); NEUT # 3.7 x10^3uL (1.8-7.7); NEUT % 50 % (31-73); PLATELET COUNT 184 x10^3/uL (140-400); RED CELL DISTRIBUTION WIDTH 14.4 % (11.5-14.5); WHITE BLOOD COUNT 7.4 x10^3/uL (4.0-11.0)
[2019-03-02 07:10] LABS: ALBUMIN 3.1 g/dL (3.4-5.0); ALBUMIN/GLOBULIN RATIO 0.9 (1.0-1.7); CALCIUM 8.7 mg/dL (8.5-10.1); CREATININE 1.7 mg/dL (0.7-1.3); GFR 40.3; POTASSIUM 4.3 mmol/L (3.5-5.1); TOTAL BILIRUBIN 0.3 mg/dL (0.2-1.0); TOTAL PROTEIN 6.6 g/dL (6.4-8.2)
[2019-03-02] MEDS: ENOXAPARIN ** NOTE DOSE ** SYRINGE SQ SCH ×2 (08:37→20:48)
[2019-03-02] MEDS: POTASSIUM CHLORIDE 20 MEQ TABLET.ER. PO SCH (08:37)
[2019-03-02] MEDS: GABAPENTIN 300 MG CAPSULE. PO SCH ×3 (08:37→20:50)
[2019-03-02] MEDS: FUROSEMIDE 40 MG TABLET PO SCH ×2 (08:38→12:19)
[2019-03-02] MEDS: FLUoxetine HCL 20 MG CAPSULE PO SCH (08:38)
[2019-03-02] MEDS: ASPIRIN ENTERIC COATED 81 MG TABLET.DR. PO SCH (08:39)
[2019-03-02] MEDS: METOPROLOL SUCC 24HR ER 50 MG TAB.ER.24H. PO SCH ×2 (08:39→08:49)
[2019-03-02] MEDS: CHOLECALCIFEROL (VITAMIN D3) 1,000 UNIT TABLET PO SCH (08:39)
[2019-03-02] MEDS: MONTELUKAST 10 MG TABLET. PO SCH (08:39)
[2019-03-02] MEDS: glipiZIDE 5 MG TABLET PO SCH ×2 (08:39→17:19)
[2019-03-02] MEDS: LINAGLIPTIN 5 MG TABLET PO SCH (08:39)
[2019-03-02] MEDS: INSULIN LISPRO 300 UNITS/3 ML VIAL. SQ SCH ×3 (08:48→17:00)
[2019-03-02] MEDS: BUDESONIDE 0.5 MG/2 ML NEBU NEB SCH ×2 (08:55→21:34)
[2019-03-02] MEDS ORDERED: NON FORMULARY ITEM (Tiotropium Bromide (Spiriva) 1 CAP) IH SCH (09:00)
[2019-03-02] MEDS ORDERED: MELOXICAM 15 MG TABLET. PO SCH (09:00)
[2019-03-02] MEDS ORDERED: ISOSORBIDE MONONITRATE ER 30 MG TAB.ER.24H PO SCH (09:00)
--- NOTE | 2019-03-02 09:35 | PDOC ---
CHINTAN ROBERTSON VINAY 03/02/19 0935: CARDIO Progress Notes Date & Time Date of Service DATE: 03/02/19 TIME: 09:31 Time of Evaluation 09:31 Subjective Notes No CP, dizziness, diaphoresis, or nausea/vomiting. Vitals Vitals Vital Signs Date Time Temp Pulse Resp B/P (MAP) Pulse Ox O2 Delivery O2 Flow Rate FiO2 03/02/19 09:00 74 18 104/52 (69) 95 Room Air 03/02/19 08:56 2.0 03/02/19 08:00 96.7 Weight Weight [ ] Input and Output I.O. Intake and Output 03/02/19 07:00 Intake Total 1340 ml Output Total 2650 ml Balance -1310 ml Intake Oral 740 ml Tube Feeding 600 ml Output Urine Total 2650 ml # Voids 6 Laboratory Labs Laboratory Tests Test 03/01/19 00:35 03/01/19 09:50 03/01/19 12:01 03/01/19 17:17 White Blood Count 10.9 x10^3/uL (4.0-11.0) Red Blood Count 3.93 x10^6/uL (4.30-5.70) Hemoglobin 12.0 g/dL (13.0-17.5) Hematocrit 36.3 % (39.0-53.0) Mean Corpuscular Volume 92 fL (79-100) Mean Corpuscular Hemoglobin 31 pg (25-35) Mean Corpuscular Hemoglobin Concent 33 g/dL (31-37) Red Cell Distribution Width 14.5 % (11.5-14.5) Platelet Count 200 x10^3/uL (140-400) Neutrophils (%) (Auto) 70 % (31-73) Lymphocytes (%) (Auto) 17 % (24-48) Monocytes (%) (Auto) 9 % (0-9) Eosinophils (%) (Auto) 4 % (0-3) Basophils (%) (Auto) 1 % (0-3) Neutrophils # (Auto) 7.6 x10^3uL (1.8-7.7) Lymphocytes # (Auto) 1.8 x10^3/uL (1.0-4.8) Monocytes # (Auto) 1.0 x10^3/uL (0.0-1.1) Eosinophils # (Auto) 0.5 x10^3/uL (0.0-0.7) Basophils # (Auto) 0.1 x10^3/uL (0.0-0.2) Erythrocyte Sedimentation Rate 35 (0-15) Prothrombin Time 10.6 SEC (9.4-11.4) Prothromb Time International Ratio 1.0 (0.9-1.1) Activated Partial Thromboplast Time 25 SEC (23-33) D-Dimer (Shalini) 4.15 mg/L (0.00-0.50) Sodium Level 136 mmol/L (136-145) Potassium Level 4.5 mmol/L (3.5-5.1) Chloride Level 99 mmol/L (98-107) Carbon Dioxide Level 25 mmol/L (21-32) Anion Gap 12 (6-14) Blood Urea Nitrogen 61 mg/dL (8-26) Creatinine 2.6 mg/dL (0.7-1.3) Estimated GFR (Cockcroft-Gault) 24.7 Glucose Level 163 mg/dL (70-99) Calcium Level 8.4 mg/dL (8.5-10.1) Magnesium Level 2.4 mg/dL (1.8-2.4) Total Bilirubin 0.4 mg/dL (0.2-1.0) Direct Bilirubin 0.1 mg/dL (0.0-0.2) Aspartate Amino Transf (AST/SGOT) 16 U/L (15-37) Alanine Aminotransferase (ALT/SGPT) 16 U/L (16-63) Alkaline Phosphatase 80 U/L (46-116) Creatine Kinase 87 U/L (39-308) Troponin I Quantitative < 0.017 ng/mL (0-0.055) DT-Gkc-E-Type Natriuretic Peptide 1002 pg/mL (0-124) Total Protein 7.0 g/dL (6.4-8.2) Albumin 3.4 g/dL (3.4-5.0) Lipase 110 U/L (73-393) Thyroid Stimulating Hormone (TSH) 1.504 uIU/mL (0.358-3.740) Urine Collection Type Unknown Urine Color Yellow Urine Clarity Hazy Urine pH 5.0 Urine Specific [place] 1.010 Urine Protein Neg (NEG-TRACE) Urine Glucose (UA) >=1000 mg/dL (NEG) Urine Ketones (Stick) Neg mg/dL (NEG) Urine Blood Neg (NEG) Urine Nitrite Neg (NEG) Urine Bilirubin Neg (NEG) Urine Urobilinogen Dipstick 0.2 mg/dL (0.2 mg/dL) Urine Leukocyte Esterase Neg (NEG) Urine RBC Occ /HPF (0-2) Urine WBC 1-4 /HPF (0-4) Urine Squamous Epithelial Cells Few /LPF Urine Transitional Epithelial Cells Occ /LPF Urine Bacteria 0 /HPF (0-FEW) Urine Hyaline Casts Few /HPF Urine Granular Casts Few /HPF Urine Mucus Slight /LPF Urine Opiates Screen Neg (NEG) Urine Methadone Screen Neg (NEG) Urine Barbiturates Neg (NEG) Urine Phencyclidine Screen Neg (NEG) Urine Amphetamine/Methamphetamine Neg (NEG) Urine Benzodiazepines Screen Neg (NEG) Urine Cocaine Screen Neg (NEG) Urine Cannabinoids Screen Neg (NEG) Urine Ethyl Alcohol Neg (NEG) Glucose (Fingerstick) 319 mg/dL (70-99) 157 mg/dL (70-99) Test 03/01/19 20:27 03/02/19 05:42 03/02/19 07:35 Glucose (Fingerstick) 173 mg/dL (70-99) 201 mg/dL (70-99) White Blood Count 7.4 x10^3/uL (4.0-11.0) Red Blood Count 3.80 x10^6/uL (4.30-5.70) Hemoglobin 11.4 g/dL (13.0-17.5) Hematocrit 35.0 % (39.0-53.0) Mean Corpuscular Volume 92 fL (79-100) Mean Corpuscular Hemoglobin 30 pg (25-35) Mean Corpuscular Hemoglobin Concent 33 g/dL (31-37) Red Cell Distribution Width 14.4 % (11.5-14.5) Platelet Count 184 x10^3/uL (140-400) Neutrophils (%) (Auto) 50 % (31-73) Lymphocytes (%) (Auto) 32 % (24-48) Monocytes (%) (Auto) 12 % (0-9) Eosinophils (%) (Auto) 6 % (0-3) Basophils (%) (Auto) 1 % (0-3) Neutrophils # (Auto) 3.7 x10^3uL (1.8-7.7) Lymphocytes # (Auto) 2.3 x10^3/uL (1.0-4.8) Monocytes # (Auto) 0.9 x10^3/uL (0.0-1.1) Eosinophils # (Auto) 0.4 x10^3/uL (0.0-0.7) Basophils # (Auto) 0.0 x10^3/uL (0.0-0.2) Sodium Level 142 mmol/L (136-145) Potassium Level 4.3 mmol/L (3.5-5.1) Chloride Level 106 mmol/L (98-107) Carbon Dioxide Level 27 mmol/L (21-32) Anion Gap 9 (6-14) Blood Urea Nitrogen 46 mg/dL (8-26) Creatinine 1.7 mg/dL (0.7-1.3) Estimated GFR (Cockcroft-Gault) 40.3 BUN/Creatinine Ratio 27 (6-20) Glucose Level 211 mg/dL (70-99) Calcium Level 8.7 mg/dL (8.5-10.1) Total Bilirubin 0.3 mg/dL (0.2-1.0) Aspartate Amino Transf (AST/SGOT) 18 U/L (15-37) Alanine Aminotransferase (ALT/SGPT) 17 U/L (16-63) Alkaline Phosphatase 75 U/L (46-116) Total Protein 6.6 g/dL (6.4-8.2) Albumin 3.1 g/dL (3.4-5.0) Albumin/Globulin Ratio 0.9 (1.0-1.7) Physical Exams HEENT: Neck Supple W Full Motion Chest: Symmetric Lungs: Clear to Auscultation Heart: S1S2, RRR Abdomen: Soft N/T Extremities: No Edema Neurology: alert, oriented, follow commands Assessment Assessment 1. Syncope; most probably secondary to dehydration/hypovolemia. No acute events on tele 2. CAD s/p CABG 2009. Cath 01/2019 with patent QUINN to LAD, patent SVG to diagonal and patent SVG to OM. 3. Chronic systolic heart failure, ICM; LVEF 40%. Clinically compensated. Doubt overt HF 4. Hypertension: Controlled 5. CHARLEEN, dehydration; improved with IVFs 6. Diabetes, II Recommendations Hold diuretics and ACEi given CHARLEEN Imdur, hydralazine as BP will allow. Will re-evaluate tomorrow. Outpatient event monitor to r/o contributing arrhythmia. Continue current secondary prevention measures. Supportive care SHEN YATES MD 03/02/19 2244: CARDIO Progress Notes Plan Plan Pt. seen and examined. 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 Etiology of near syncope is still unclear. He does appear to be suffering from COPD exacerbation as well Medication list is unclear - ? metoprolol versus bisoprolol versus other med reconc issues. No obvious new cardiac pathology noted. intermediate CAD. Supportive care. Off pressors now. Thanks. Reviewed OSH records. CHINTAN ROBERTSON APRN Mar 02, 2019 09:35 SHEN YATES MD Mar 02, 2019 22:44
--- NOTE | 2019-03-02 12:44 | CONS ---
DATE OF CONSULTATION: 03/01/2019 NEUROLOGY CONSULTATION REFERRING PHYSICIAN: Dr. Prather. REASON FOR CONSULTATION: Syncope versus TIA. HISTORY OF PRESENT ILLNESS: This is a 68-year-old right-handed male who was admitted to Emergency Room after he presented with chief complaints of what appeared to be syncope. According to the patient, he tried to get up and go to bed, he got dizzy, described as vertigo. Subsequently, he fell backward and hit his head. The patient stated he did not lose his consciousness; however, he could not get up, but tried to call. The patient denies any preceding chest pain, shortness of breath or palpitation, dysarthria or dysphagia. The patient described dizziness from previous stroke. On arrival to Emergency Room, the patient was alert and oriented. His initial head CT scan revealed no evidence of intracranial process, but showed old right occipital infarct and left frontal infarct without acute intracranial process. As a result of the fall, the patient complains of severe left knee pain. Currently, he denies headaches, visual disturbances, dysarthria or dysphagia, weakness or paresthesia. PAST MEDICAL HISTORY: Significant for coronary artery disease, COPD, history of stroke a few years back without significant neurological residual, GERD, hypertension, hyperlipidemia, hypothyroidism, chronic renal disease, myocardial infarction, multiple medical problems include schizophrenia, anxiety and depressions, diabetes mellitus. History of ischemic cardiomyopathy and congestive heart failure. PAST SURGICAL HISTORY: Significant for coronary artery bypass graft. SOCIAL HISTORY: The patient is single. He smokes 3-4 cigarettes daily. He denies alcohol drinking or illicit drug use. He is a . FAMILY HISTORY: Noncontributory. CURRENT HOME MEDICATIONS: Albuterol inhaler, alogliptin, Prozac, Lasix, ____, Seroquel, gabapentin, Pulmicort nebulizer, insulin Humalog, glipizide. ALLERGIES: PENICILLIN, ARIPIPRAZOLE, and DIAZEPAM. REVIEW OF SYSTEMS: A 10-point review of system was performed as mentioned above in history of present illness. The patient complains of left knee pain secondary to recent fall and exertional dyspnea. PHYSICAL EXAMINATION: GENERAL: Obese male, not in acute distress. He weighs 110.7 pounds. VITAL SIGNS: Blood pressure 128/61, respiratory rate 20, pulse is 94 and regular, oxygen saturation 96% on 3 liters via nasal cannula. HEENT: Normocephalic. The patient has scalp hematoma in the back of his head. Otherwise, unremarkable. NECK: Supple. Negative for carotid bruit, lymphadenopathy or thyromegaly. LUNGS: Clear to A and P. CARDIOVASCULAR: Regular rate and rhythm, normal S1, S2. There is no S3, S4 or murmur. ABDOMEN: Soft. Bowel sounds positive. EXTREMITIES: Negative for cyanosis, clubbing, or pitting edema. NEUROLOGICAL EXAM: Mental Status: The patient is alert and oriented x 3. The speech is fluent. There is no language dysfunction. Memory, judgment, and abstracting thinking are fair. The patient denies hallucination or delusion. CRANIAL NERVES: Visual massey are full. The pupils are reactive to light and accommodation. Extraocular movements are intact. There is no nystagmus. There is no facial motor or sensory deficit. Hearing is intact bilaterally. The palate is elevated symmetrically. Sternocleidomastoid muscles are powerful bilaterally. The patient shrugs his shoulders symmetrically, protrudes his tongue in the midline without fasciculation or atrophy. MOTOR: No focal muscle bulk was seen. The tone is normal. The strength is 4/5 in the left lower extremity secondary to knee pain. The strength elsewhere was 5/5 throughout. Sensory examination revealed normal pinprick, light touch, vibratory and position senses. Deep tendon reflexes were symmetric and hypoactive with absent Achilles responses. Gait not tested. LABORATORY DATA: CBC revealed white blood cells of 10.9, hemoglobin 12, hematocrit 36.3, platelet count 200,000. Chemistry revealed sodium of 136, potassium 4.5, chloride 99, CO2 of 25, BUN 61, creatinine 2.6, glucose 163, calcium 8.4. Liver enzymes are normal. Troponin level is normal. BNP is high at 1000.2. TSH is normal. Urinalysis is negative for urinary tract infections. Urine drug screen is negative. DIAGNOSTIC DATA: Nonenhanced head CT scan as mentioned above in history of present illness. Venous ultrasound of the lower extremities revealed no evidence of DVTs and color Doppler study revealed no evidence of acute stenosis. Cervical spine CT scan revealed no evidence of fracture or significant abnormalities. IMPRESSION: 1. Syncope, etiology uncertain, rule out paroxysmal arrhythmia versus orthostatic hypotension due to dehydration. 2. Multiple medical problems include coronary artery disease, hypertension, hyperlipidemia, hypothyroidism, anemia, chronic obstructive pulmonary disease, congestive heart failure, possible diabetic peripheral neuropathy in the lower extremities, depression, anxiety, and history of schizophrenia. 3. Chronic renal disease. RECOMMENDATIONS: 1. Continue with current management initiated by Dr. Prather. 2. Check for orthostatic changes. 3. Physical therapy evaluation. 4. Careful hydration. M Tomas CARRINGTON MD DR: DOLORES/michael JOB#: [id number] / [id number]
--- NOTE | 2019-03-02 13:17 | NUR ---
pt CVP 7
--- NOTE | 2019-03-02 13:50 | NUR ---
Spoke with [facility] home health care case manager, got an updated med list. Pt is no longer on Metoprolol, Imdur or Amlodipine. Lasix is ordered prn per [facility]. Pt is supposed to be on Spironolactone 12.5 qd, Lisinopril 40 qhs and Rosuvastatin 40 qhs. Addendum: 03/02/19 at 1423 by [place] HAQ RN Pt also on Bisoprolol Fumarate 10 mg qd. Updated pt med list in computer.
[2019-03-02] MEDS ORDERED: BISO10TA PO (14:21)
[2019-03-02] MEDS ORDERED: [UNRECOGNIZED DRUG - CODE] IH (14:21)
[2019-03-02] MEDS ORDERED: DICL100G28 TP (14:21)
[2019-03-02] MEDS ORDERED: EMPA25TA PO (14:21)
[2019-03-02] MEDS ORDERED: CYAN-25 PO (14:21)
[2019-03-02] MEDS ORDERED: CARB15DR3 EACHEYE (14:21)
[2019-03-02] MEDS ORDERED: NITR0.4T22 SL (14:21)
[2019-03-02] MEDS ORDERED: CRESTOR40 MG PO (14:21)
[2019-03-02] MEDS ORDERED: SPIR25TA5 PO (14:21)
[2019-03-02] MEDS ORDERED: FLUT16SP21 NS (14:21)
[2019-03-02] MEDS ORDERED: FURO-69 PO (14:21)
[2019-03-02] MEDS ORDERED: RANI150T2 PO (14:21)
[2019-03-02] MEDS ORDERED: LISI40TA PO (14:21)
[2019-03-02] MEDS ORDERED: SALI44.3 MM (14:21)
[2019-03-02] MEDS ORDERED: PROAIR RESPICL90 MCG IH (14:21)
[2019-03-02] MEDS ORDERED: SODI50SP NS (14:21)
[2019-03-02] MEDS: oxyCODONE/APAP 5/325 1 TAB TABLET PO PRN ×3 (14:33→21:51)
--- NOTE | 2019-03-02 18:58 | PN ---
DATE: SUBJECTIVE: The patient denies any chest pain, shortness of breath or palpitation. He has not had any syncopal episode since admission. He continues to complain of pain of the right ankle, mainly when he turn it to any side and pain of the left knee joint. OBJECTIVE: GENERAL: Obese male, not in acute distress. VITAL SIGNS: Blood pressure 104/52, respiratory rate 18, pulse is 74 and regular, temperature is 96.7, oxygen saturation 95% on 2 liters by nasal cannula. HEENT: Normocephalic, the patient had hematoma on the occipital region secondary to recent fall, otherwise, unremarkable. NECK: Supple. Negative for carotid bruit, lymphadenopathy or thyromegaly. LUNGS: Clear to A and P. CARDIOVASCULAR: Regular rate and rhythm, normal S1, S2. There is no S3, S4 or murmur. ABDOMEN: Soft. Bowel sounds positive. EXTREMITIES: Negative for cyanosis, clubbing or edema. NEUROLOGICAL EXAM: Mental Status: The patient is alert and oriented x 3. Speech is fluent. There is no language dysfunction, otherwise unremarkable. Cranial nerves are intact. No focal motor or sensory deficit. Deep tendon reflexes were symmetric and hypoactive with absent Achilles responses. Gait not tested. DIAGNOSTIC DATA: Left knee x-ray revealed degenerative changes, otherwise, no acute process. Right ankle x-ray revealed nondisplaced medial malleolar fracture. V/Q revealed intermediate probability for pulmonary embolic disease. LABORATORY DATA: CBC revealed white blood cells of 7400, hemoglobin 11.4, hematocrit 35, platelet count 184,000. Chemistry revealed sodium of 142, potassium 4.3, chloride 106, CO2 of 27, BUN 46, creatinine 1.7, glucose is 211, calcium 8.7. IMPRESSION: 1. Syncope, rule out cardiac arrhythmia versus orthostatic hypotension and dehydration. 2. Multiple medical problems include diabetes mellitus, obesity, hypertension, hyperlipidemia, coronary artery disease. RECOMMENDATIONS: Continue with current management initiated by Dr. Prather and with Cardiology recommendations. The patient is neurologically stable. M Tomas CARRINGTON MD DR: DOLORES/michael JOB#: [id number] / [id number]
[2019-03-02] MEDS: methylPREDNISolone SOD SUCC PF 40 MG/ML VIAL. IV SCH (20:48)
[2019-03-02] MEDS: PRAZOSIN 1 MG CAPSULE. PO SCH (20:49)
[2019-03-02] MEDS: PRAZOSIN 5 MG CAPSULE. PO SCH (20:49)
[2019-03-02] MEDS: AMITRIPTYLINE HCL 25 MG TABLET PO SCH (20:50)
[2019-03-02] MEDS: QUEtiapine 100 MG TABLET. PO SCH (20:50)
[2019-03-03] VITALS (11 sets, daily range): BP systolic 93–160; BP diastolic 39–69
[2019-03-03] MEDS: oxyCODONE/APAP 5/325 1 TAB TABLET PO PRN ×2 (01:50→20:40)
--- NOTE | 2019-03-03 04:27 | PN ---
DATE: 03/02/2019 SUBJECTIVE: The patient is a 68-year-old male patient who was admitted yesterday with a syncopal episode. He was treated with IV fluid and was started also on Levophed. He apparently complained of pain in his left ankle joint and his x-ray showed that he has x-ray of the right ankle joint showed that he has nondisplaced inferior medial malleolar fracture. There is a tiny corticated ossicle inferior to the lateral malleolus, which is chronic in appearance. There is a tiny plantar spur. There is enthesopathy at the Achilles tendon insertion. There is soft tissue swelling. I did speak with Dr. Ferguson, who recommended walking boot. The x-ray of his left knee joint showed degenerative changes with no acute finding. OBJECTIVE: GENERAL: On examining him this afternoon, he was sitting slightly propped up in bed, in no apparent respiratory distress, pale, no jaundice, cyanosis or thyromegaly. No jugular venous distention. No limb edema. VITAL SIGNS: His heart rate was 75, blood pressure was 114/70, temperature was 98, respiratory rate was 19 and oxygen saturation was 96% on 2 liters of oxygen. HEAD, EYES, EARS, NOSE AND THROAT: Showed normocephalic, atraumatic. NECK: Supple. HEART: Showed normal first and second heart sounds with no gallop, rub or murmur. CHEST: Showed central trachea, equally reduced expansion, reduced air entry, vesicular breath sounds. He has scattered rhonchi, but no crepitation. ABDOMEN: Slightly distended, soft, nontender. No guarding or rigidity. No organomegaly. All hernial orifice intact. Bowel sounds normal. NEUROLOGIC: He was awake, alert, responding appropriately. All cranial nerves are intact. He moves all extremities without difficulty. His intake over the last 24 hours was 1000. No output was recorded. LABORATORY DATA: His lab work this morning showed a serum sodium 142, potassium 4.3, chloride 106, bicarbonate 27, anion gap of 9, BUN 46, creatinine 1.7, estimated GFR was 40 mL per minute. His glucose was 111, calcium was 8.7. Total bilirubin, AST, ALT, alkaline phosphatase were normal. Total protein 6.6, albumin 3.1. His white cell count was 7400, hemoglobin 11, hematocrit 35, MCV 92, and platelet count of 184,000. His D-dimer was high at 4.15 and his V/Q scan was read as intermediate probability for pulmonary embolic disease. There is moderate heterogeneity of radiotracer perfusion images, no mismatch or perfusion defect is identified. ASSESSMENT: In summary, this is a 68-year-old male patient who was admitted with syncopal episode, probably multifactorial. His carotid Doppler ultrasound showed no evidence of greater than 50% stenosis, bilateral lower extremity venous Doppler ultrasound was negative; however, the V/Q scan was read as intermediate probability for pulmonary embolism. He continues to be on therapeutic dose of Lovenox. Other medical problems include chronic obstructive pulmonary disease, coronary artery disease, status post CABG, chronic systolic heart failure, hypertension, acute kidney injury improving, type 2 diabetes mellitus. Unfortunately, the patient continued to have severe marked bronchospasm. PLAN: To start him on IV Solu-Medrol 40 mg IV q. 8 hourly. I discontinued his naproxen and meloxicam. I have consulted Physical and Occupational therapy and we arranged for him to have a walking boot as he is not a candidate for surgical treatment. YELENA GARCIA MD DR: BOSTON/michael JOB#: [id number] / [id number]
[2019-03-03] MEDS: IPRATRPIUM/ALBUTEROL 0.5/2.5MG 3 ML NEBU. NEB SCH ×4 (05:17→20:00)
[2019-03-03] MEDS: methylPREDNISolone SOD SUCC PF 40 MG/ML VIAL. IV SCH ×3 (05:29→20:37)
--- NOTE | 2019-03-03 06:10 | NUR ---
Shift Note: Pt a/ox4. Blood pressure decreased to 70s after evening medications, may possibly related to prazosin, will forward to dayshift to discuss w/physician, blood pressure rebounded after a couple of hours. Pt continues to c/o pain in left knee, oral medication effective in managing pain. Pt has not c/o much of pain in right ankle, however cam boot should be ordered today by PT so pt will be able to walk w/boot
[2019-03-03 06:58] LABS: HEMATOCRIT 35.5 % (39.0-53.0); HEMOGLOBIN 11.6 g/dL (13.0-17.5); RED BLOOD COUNT 3.83 x10^6/uL (4.30-5.70); RED CELL DISTRIBUTION WIDTH 14.6 % (11.5-14.5); WHITE BLOOD COUNT 9.9 x10^3/uL (4.0-11.0)
[2019-03-03 07:06] LABS: ALBUMIN 3.2 g/dL (3.4-5.0); ALBUMIN/GLOBULIN RATIO 0.8 (1.0-1.7); CALCIUM 8.9 mg/dL (8.5-10.1); CREATININE 1.6 mg/dL (0.7-1.3); GFR 43.2; POTASSIUM 5.1 mmol/L (3.5-5.1); TOTAL BILIRUBIN 0.4 mg/dL (0.2-1.0); TOTAL PROTEIN 7.2 g/dL (6.4-8.2)
[2019-03-03] MEDS: POTASSIUM CHLORIDE 20 MEQ TABLET.ER. PO SCH (08:00)
[2019-03-03] MEDS: CHOLECALCIFEROL (VITAMIN D3) 1,000 UNIT TABLET PO SCH (08:45)
[2019-03-03] MEDS: MONTELUKAST 10 MG TABLET. PO SCH (08:45)
[2019-03-03] MEDS: glipiZIDE 5 MG TABLET PO SCH ×2 (08:45→16:13)
[2019-03-03] MEDS: LINAGLIPTIN 5 MG TABLET PO SCH (08:45)
[2019-03-03] MEDS: ASPIRIN ENTERIC COATED 81 MG TABLET.DR. PO SCH (08:45)
[2019-03-03] MEDS: GABAPENTIN 300 MG CAPSULE. PO SCH ×3 (08:46→20:38)
[2019-03-03] MEDS: ENOXAPARIN ** NOTE DOSE ** SYRINGE SQ SCH ×2 (08:48→20:40)
[2019-03-03] MEDS: FLUoxetine HCL 20 MG CAPSULE PO SCH (08:48)
[2019-03-03] MEDS: INSULIN LISPRO 300 UNITS/3 ML VIAL. SQ SCH ×6 (08:51→20:37)
[2019-03-03] MEDS: BUDESONIDE 0.5 MG/2 ML NEBU NEB SCH ×2 (11:38→20:00)
[2019-03-03] MEDS ORDERED: DEXTROSE 50% 25 GM / 50ML DISP.SYRIN. IV PRN (16:00)
--- NOTE | 2019-03-03 16:00 | NUR ---
Patients boot has arrived from [place] case coordinator aware. Physician states he would like to hydrate patient overnight and try to complete CT Scan in AM to rule out PE. Patient aware of plan of care, PT plans to work with patient tomorrow on exercises with Boot.
--- NOTE | 2019-03-03 16:00 | PDOC ---
CARDIO Progress Notes Date & Time Date of Service DATE: 03/03/19 TIME: 15:56 Time of Evaluation 09:15 Vitals Vitals Vital Signs Date Time Temp Pulse Resp B/P (MAP) Pulse Ox O2 Delivery O2 Flow Rate FiO2 03/03/19 14:28 80 18 128/68 (88) 95 Nasal Cannula 3.0 03/03/19 09:27 97.5 Weight Weight [ ] Input and Output I.O. Intake and Output 03/03/19 07:00 Intake Total 1890 ml Output Total 3350 ml Balance -1460 ml Intake Oral 1890 ml Output Urine Total 3350 ml # Voids 1 Laboratory Labs Laboratory Tests Test 03/01/19 17:17 03/01/19 20:27 03/02/19 05:42 03/02/19 07:35 Glucose (Fingerstick) 157 mg/dL (70-99) 173 mg/dL (70-99) 201 mg/dL (70-99) White Blood Count 7.4 x10^3/uL (4.0-11.0) Red Blood Count 3.80 x10^6/uL (4.30-5.70) Hemoglobin 11.4 g/dL (13.0-17.5) Hematocrit 35.0 % (39.0-53.0) Mean Corpuscular Volume 92 fL (79-100) Mean Corpuscular Hemoglobin 30 pg (25-35) Mean Corpuscular Hemoglobin Concent 33 g/dL (31-37) Red Cell Distribution Width 14.4 % (11.5-14.5) Platelet Count 184 x10^3/uL (140-400) Neutrophils (%) (Auto) 50 % (31-73) Lymphocytes (%) (Auto) 32 % (24-48) Monocytes (%) (Auto) 12 % (0-9) Eosinophils (%) (Auto) 6 % (0-3) Basophils (%) (Auto) 1 % (0-3) Neutrophils # (Auto) 3.7 x10^3uL (1.8-7.7) Lymphocytes # (Auto) 2.3 x10^3/uL (1.0-4.8) Monocytes # (Auto) 0.9 x10^3/uL (0.0-1.1) Eosinophils # (Auto) 0.4 x10^3/uL (0.0-0.7) Basophils # (Auto) 0.0 x10^3/uL (0.0-0.2) Sodium Level 142 mmol/L (136-145) Potassium Level 4.3 mmol/L (3.5-5.1) Chloride Level 106 mmol/L (98-107) Carbon Dioxide Level 27 mmol/L (21-32) Anion Gap 9 (6-14) Blood Urea Nitrogen 46 mg/dL (8-26) Creatinine 1.7 mg/dL (0.7-1.3) Estimated GFR (Cockcroft-Gault) 40.3 BUN/Creatinine Ratio 27 (6-20) Glucose Level 211 mg/dL (70-99) Calcium Level 8.7 mg/dL (8.5-10.1) Total Bilirubin 0.3 mg/dL (0.2-1.0) Aspartate Amino Transf (AST/SGOT) 18 U/L (15-37) Alanine Aminotransferase (ALT/SGPT) 17 U/L (16-63) Alkaline Phosphatase 75 U/L (46-116) Total Protein 6.6 g/dL (6.4-8.2) Albumin 3.1 g/dL (3.4-5.0) Albumin/Globulin Ratio 0.9 (1.0-1.7) Test 03/02/19 11:40 03/02/19 16:30 03/02/19 20:58 03/03/19 05:58 Glucose (Fingerstick) 191 mg/dL (70-99) 124 mg/dL (70-99) 208 mg/dL (70-99) White Blood Count 9.9 x10^3/uL (4.0-11.0) Red Blood Count 3.83 x10^6/uL (4.30-5.70) Hemoglobin 11.6 g/dL (13.0-17.5) Hematocrit 35.5 % (39.0-53.0) Mean Corpuscular Volume 93 fL (79-100) Mean Corpuscular Hemoglobin 30 pg (25-35) Mean Corpuscular Hemoglobin Concent 33 g/dL (31-37) Red Cell Distribution Width 14.6 % (11.5-14.5) Platelet Count 187 x10^3/uL (140-400) Sodium Level 138 mmol/L (136-145) Potassium Level 5.1 mmol/L (3.5-5.1) Chloride Level 101 mmol/L (98-107) Carbon Dioxide Level 28 mmol/L (21-32) Anion Gap 9 (6-14) Blood Urea Nitrogen 35 mg/dL (8-26) Creatinine 1.6 mg/dL (0.7-1.3) Estimated GFR (Cockcroft-Gault) 43.2 BUN/Creatinine Ratio 22 (6-20) Glucose Level 312 mg/dL (70-99) Calcium Level 8.9 mg/dL (8.5-10.1) Total Bilirubin 0.4 mg/dL (0.2-1.0) Aspartate Amino Transf (AST/SGOT) 19 U/L (15-37) Alanine Aminotransferase (ALT/SGPT) 19 U/L (16-63) Alkaline Phosphatase 82 U/L (46-116) Total Protein 7.2 g/dL (6.4-8.2) Albumin 3.2 g/dL (3.4-5.0) Albumin/Globulin Ratio 0.8 (1.0-1.7) Test 03/03/19 12:19 03/03/19 13:45 03/03/19 15:04 Glucose (Fingerstick) 454 mg/dL (70-99) 481 mg/dL (70-99) 429 mg/dL (70-99) Physical Exams HEENT: Neck Supple W Full Motion Chest: Symmetric Lungs: Clear to Auscultation Heart: S1S2, RRR Abdomen: Soft N/T Extremities: No Edema Neurology: alert, oriented, follow commands Assessment Assessment 1. Syncope; etiology unclear. No acute events on tele 2. CAD s/p CABG 2009. Cath 01/2019 with patent QUINN to LAD, patent SVG to diagonal and patent SVG to OM. 3. Chronic systolic heart failure, ICM; LVEF 40%. Clinically compensated. 4. AECOPD 5. Hypertension: hypotensive last night, otherwise controlled 6. CHARLEEN, dehydration; improved 7. Diabetes, II Recommendations Orthostatic vitals Encouraged oral hydration Continue current secondary prevention measures. Outpatient event monitor to r/o contributing arrhythmia. Supportive care CHINTAN ROBERTSON APRN Mar 03, 2019 16:00
[2019-03-03] MEDS: IV 1/2 NORMAL SALINE 1,000 ML IV SCH (16:13)
[2019-03-03] MEDS ORDERED: INSULIN LISPRO 300 UNITS/3 ML VIAL. SQ SCH (17:00)
--- NOTE | 2019-03-03 18:42 | NUR ---
No issues so far this shift with BP, spoke with physician in regards to medications. Will hydrate overnight and continue medications for COPD.
[2019-03-03] MEDS: PRAZOSIN 5 MG CAPSULE. PO SCH (20:38)
[2019-03-03] MEDS: QUEtiapine 100 MG TABLET. PO SCH (20:38)
[2019-03-03] MEDS: PRAZOSIN 1 MG CAPSULE. PO SCH (20:39)
[2019-03-03] MEDS: AMITRIPTYLINE HCL 25 MG TABLET PO SCH (20:40)
[2019-03-03] MEDS: INSULIN GLARGINE SYRINGE. SQ SCH (20:48)
[2019-03-04] VITALS (7 sets, daily range): BP systolic 95–141; BP diastolic 59–68
--- NOTE | 2019-03-04 00:54 | PN ---
DATE: SUBJECTIVE: The patient denies any new neurological complaints; however, he was found to have a low systolic blood pressure down to 70 mmHg after he took prazosin and he continued to have vivid dreams. OBJECTIVE: GENERAL: Obese male, in no acute distress. VITAL SIGNS: Blood pressure 114/62, respiratory rate 21, pulse is 88, regular, and oxygen saturation 94% on 3 liters by nasal cannula. HEENT: Normocephalic. The patient had a small occipital hematoma secondary to recent fall. NECK: Supple. Negative for carotid bruit, lymphadenopathy, or thyromegaly. LUNGS: Clear to A and P. CARDIOVASCULAR: Regular rate and rhythm and normal S1 and S2. There is no S3, S4, or murmur. ABDOMEN: Soft. Bowel sounds are positive. EXTREMITIES: Negative for cyanosis, clubbing, or pitting edema. NEUROLOGICAL EXAM: Mental Status: The patient is alert and oriented x 3. The speech is fluent. There is no language dysfunction. Cranial nerves are intact. No focal motor or sensory deficit. Deep tendon reflexes were symmetric and hypoactive with absent Achilles responses. Gait not tested. LABORATORY DATA: CBC revealed white blood cells of 9.9 thousand, hemoglobin 11.6, hematocrit 35.5, and platelet count 187,000. Chemistry revealed sodium of 138, potassium 5.1, chloride 101, CO2 of 28, BUN is 35, creatinine 1.6, glucose is 312, and calcium 8.9. X-ray of the left knee revealed degenerative changes and no acute findings. IMPRESSION: 1. Syncope, rule out cardiac arrhythmia versus an orthostatic hypotension. 2. ____ after taking prazosin, which may have contributed to the recurrent syncopal attacks. 3. Multiple medical problems include diabetes mellitus, obesity, hypertension, hyperlipidemia, and coronary artery disease. RECOMMENDATIONS: 1. Continue with current medical care. 2. Consider discontinue prazosin and see if the patient's orthostatic hypotension improves. M Tomas CARRINGTON MD DR: DOLORES/michael JOB#: [id number] / [id number]
--- NOTE | 2019-03-04 02:23 | PN ---
DATE: 03/03/2019 SUBJECTIVE: The patient is sitting comfortably in his recliner, in no apparent distress. He continued to complain of pain in his left knee and right ankle joint. We managed to get him walking boot as Dr. Ferguson did not recommend any surgical intervention and recommended the walking boot. PHYSICAL EXAMINATION: GENERAL: When I examined him, he looked well and was clearly in no apparent respiratory distress, pale, but no jaundice, cyanosis or thyromegaly. No jugular venous distension. No limb edema. VITAL SIGNS: His heart rate was 80, blood pressure 128/68, temperature was 97.5, respiratory rate was 18 and oxygen saturation was 94% on 3 liters of oxygen. HEAD, EYES, EARS, NOSE AND THROAT: Showed normocephalic, atraumatic. NECK: Supple. HEART: Showed normal first and second heart sounds. No gallop or murmur. CHEST: Shows central trachea, equal bilateral expansion, air entry, vesicular sounds with bilateral scattered rhonchi, slightly better than yesterday. I could not appreciate any crepitation. ABDOMEN: Distended, soft, nontender. NEUROLOGIC: He was awake, alert, responding appropriately. All cranial nerves are intact. He moves extremities without difficulty, although he is mostly bedbound, chair bound. His intake over the last 24 hours was 1890, output was 3350. LABORATORY DATA: As of this morning, his white cell count was 9900, hemoglobin 11.6, hematocrit 35.5, MCV 93, and platelet count of 187,000. His chemistry showed a serum sodium 138, potassium 5.1, chloride 101, bicarbonate 28, anion gap of 9, BUN 35, creatinine 1.6, estimated GFR was 43 mL per minute, his glucose was 312, calcium was 8.9. Total bilirubin, AST, ALT, alkaline phosphatase were normal. Total protein was 7.2, albumin 3.2. Prothrombin time was 10.6. INR and aPTT were normal. D-dimer was high at 4.16. ASSESSMENT: 1. Syncopal episode, probably multifactorial. The patient was extensively investigated including a carotid Doppler ultrasound showed no evidence of greater than 50% stenosis. 2. Bilateral lower extremity venous Doppler ultrasound was negative. 3. V/Q scan read as an intermediate probability for pulmonary embolism and he continues to be on a therapeutic dose of Lovenox. 4. The patient has chronic obstructive pulmonary disease exacerbation. 5. Coronary artery disease, status post CABG. 6. Chronic systolic congestive heart failure. 7. Hypertension. 8. Acute kidney injury, improving. 9. Type 2 diabetes mellitus, poorly controlled due to steroids. PLAN: To continue with IV Solu-Medrol. I will start him also IV fluid in the form of half normal saline at 75 mL per hour and hopefully if kidney function improves by tomorrow, we should be able to do CT angiography. I also increased his NovoLog insulin to 15 units before meals and 10 units of Lantus insulin at bedtime together insulin sliding scale. YELENA GARCIA MD DR: BOSTON/michael JOB#: [id number] / [id number]
[2019-03-04] MEDS: IV 1/2 NORMAL SALINE 1,000 ML IV SCH (05:13)
[2019-03-04] MEDS: methylPREDNISolone SOD SUCC PF 40 MG/ML VIAL. IV SCH ×2 (05:14→20:37)
[2019-03-04] MEDS: IPRATRPIUM/ALBUTEROL 0.5/2.5MG 3 ML NEBU. NEB SCH ×4 (05:27→21:56)
[2019-03-04 06:25] LABS: HEMATOCRIT 33.7 % (39.0-53.0); HEMOGLOBIN 10.8 g/dL (13.0-17.5); RED BLOOD COUNT 3.62 x10^6/uL (4.30-5.70); RED CELL DISTRIBUTION WIDTH 14.3 % (11.5-14.5); WHITE BLOOD COUNT 17.9 x10^3/uL (4.0-11.0)
[2019-03-04 06:31] LABS: CALCIUM 8.6 mg/dL (8.5-10.1); CREATININE 1.4 mg/dL (0.7-1.3); GFR 50.4; POTASSIUM 4.6 mmol/L (3.5-5.1)
[2019-03-04] MEDS: POTASSIUM CHLORIDE 20 MEQ TABLET.ER. PO SCH (08:00)
[2019-03-04] MEDS: LINAGLIPTIN 5 MG TABLET PO SCH (09:11)
[2019-03-04] MEDS: glipiZIDE 5 MG TABLET PO SCH ×2 (09:11→15:59)
[2019-03-04] MEDS: CHOLECALCIFEROL (VITAMIN D3) 1,000 UNIT TABLET PO SCH (09:11)
[2019-03-04] MEDS: MONTELUKAST 10 MG TABLET. PO SCH (09:11)
[2019-03-04] MEDS: GABAPENTIN 300 MG CAPSULE. PO SCH ×3 (09:11→20:37)
[2019-03-04] MEDS: ASPIRIN ENTERIC COATED 81 MG TABLET.DR. PO SCH (09:11)
[2019-03-04] MEDS: ENOXAPARIN ** NOTE DOSE ** SYRINGE SQ SCH (09:14)
[2019-03-04] MEDS: INSULIN LISPRO 300 UNITS/3 ML VIAL. SQ SCH ×6 (09:16→17:16)
[2019-03-04] MEDS: FLUoxetine HCL 20 MG CAPSULE PO SCH (09:19)
[2019-03-04] MEDS: BUDESONIDE 0.5 MG/2 ML NEBU NEB SCH ×2 (09:49→21:56)
--- NOTE | 2019-03-04 10:23 | PN ---
DATE: SUBJECTIVE: The patient denies any new medical or neurological complaints. The pain of the left knee and right ankle has been better. He denies headaches, visual disturbances, nausea, vomiting, or chest pain. OBJECTIVE: GENERAL: Obese male, not in acute distress. VITAL SIGNS: Blood pressure 102/67, respiratory rate 19, pulse is 99, temperature is 97.2, oxygen saturation 95% on 3 liters by nasal cannula. HEENT: Normocephalic, atraumatic, otherwise unremarkable. NECK: Supple. Negative for carotid bruit, lymphadenopathy or thyromegaly. LUNGS: With diminished breath sounds. CARDIOVASCULAR: Regular rate and rhythm, normal S1, S2. ABDOMEN: Soft. Bowel sounds positive. EXTREMITIES: Negative for cyanosis, clubbing, pitting edema. NEUROLOGICAL EXAM: Normal mental status and intact cranial nerves. LABORATORY DATA: CBC revealed white blood cells of 17.9 thousand, hemoglobin 10.8, hematocrit 33.7, platelet count 196,000. Chemistry revealed sodium of 138, potassium 4.6, chloride 101, CO2 26, BUN 49, creatinine 1.4, glucose 261, calcium 8.6. IMPRESSION: 1. Syncope, probably multifactorial, as mentioned before. 2. Multiple medical problems include diabetes mellitus, obesity, chronic obstructive pulmonary disease, hypertension, hyperlipidemia, coronary artery disease. RECOMMENDATION: Continue with current care, initiated by Dr. Prather. The patient is neurologically stable. M Tomas CARRINGTON MD DR: DOLORES/michael JOB#: [id number] / [id number]
[2019-03-04] MEDS ORDERED: IOHEXOL 350 MG/ML 100 ML VIAL. IV ONE (11:00)
--- NOTE | 2019-03-04 11:58 | RAD ---
PQRS Compliance Statement: One or more of the following individualized dose reduction techniques were utilized for this examination: 1. Automated exposure control 2. Adjustment of the mA and/or kV according to patient size 3. Use of iterative reconstruction technique CT CHEST WITH CONTRAST, PULMONARY ANGIOGRAM History: Syncope . Intermediate probability VQ scan 3 days ago. Comparison: None. Technique: Helical CT of the chest was performed after the administration of 60 cc of Omnipaque 300 intravenous contrast according to PE protocol. Axial and coronal reconstructions were obtained. 3-D MIP images were constructed to better evaluate the pulmonary arteries. Findings: Pulmonary arteries are adequately opacified. There is no evidence of pulmonary embolism. There is no thoracic aortic dissection. Atherosclerotic thoracic aorta. Changes of CABG, coronary artery disease. Mild bilateral gynecomastia. 13 mm right paratracheal lymph node. No hilar adenopathy. 1 cm AP window lymph node. Cardiac size upper limits of normal, no pericardial effusion. There is no pleural effusion. There is moderate upper lobe centrilobular emphysema. There is bilateral peribronchial thickening. There is scattered mucus plugging bilaterally. There are tree-in-bud opacities in the basilar right lower lobe. There are a few in the posterior right upper lobe. There are moderate groundglass opacities in the left upper lobe mainly involving the lingula. Mild atelectasis basilar left lower lobe. There is an irregular 8 mm nodule the right lung apex, image 28. There is fatty infiltration of the liver. Degenerative endplate spurring of the thoracic spine. IMPRESSION: 1. There is no CT evidence of pulmonary embolus. 2. There is bilateral bronchitis. There is nonspecific bronchiolitis in the basilar right lower lobe. Recommend CT chest follow-up 3 months after completion of medical therapy. 3. Groundglass opacity in the lingula may be infectious/inflammatory. 4. There is an 8 mm irregular nodule in the right lung apex. Suggest attention on follow-up. 5. Moderate upper lobe centrilobular emphysema. 6. There are 2 mildly enlarged mediastinal lymph nodes, given pulmonary findings the lymph nodes may be reactive. Suggest attention on follow-up. Electronically signed by: Jaun Rojas MD (03/04/2019 11:55 AM) [id number]
--- NOTE | 2019-03-04 15:54 | PDOC ---
CARDIO Progress Notes Date & Time Date of Service DATE: 03/04/19 TIME: 15:50 Time of Evaluation 0915 Subjective Notes slightly wheezy this morning following working with therapy. Vitals Vitals Vital Signs Date Time Temp Pulse Resp B/P (MAP) Pulse Ox O2 Delivery O2 Flow Rate FiO2 03/04/19 13:24 96 19 120/66 (84) 97 Nasal Cannula 3.0 03/04/19 00:14 97.2 Weight Weight [ ] Input and Output I.O. Intake and Output 03/04/19 07:00 Intake Total 2302 ml Output Total 2520 ml Balance -218 ml Intake Oral 1250 ml IV Total 1052 ml Output Urine Total 2520 ml Laboratory Labs Laboratory Tests Test 03/02/19 16:30 03/02/19 20:58 03/03/19 05:58 03/03/19 12:19 Glucose (Fingerstick) 124 mg/dL (70-99) 208 mg/dL (70-99) 454 mg/dL (70-99) White Blood Count 9.9 x10^3/uL (4.0-11.0) Red Blood Count 3.83 x10^6/uL (4.30-5.70) Hemoglobin 11.6 g/dL (13.0-17.5) Hematocrit 35.5 % (39.0-53.0) Mean Corpuscular Volume 93 fL (79-100) Mean Corpuscular Hemoglobin 30 pg (25-35) Mean Corpuscular Hemoglobin Concent 33 g/dL (31-37) Red Cell Distribution Width 14.6 % (11.5-14.5) Platelet Count 187 x10^3/uL (140-400) Sodium Level 138 mmol/L (136-145) Potassium Level 5.1 mmol/L (3.5-5.1) Chloride Level 101 mmol/L (98-107) Carbon Dioxide Level 28 mmol/L (21-32) Anion Gap 9 (6-14) Blood Urea Nitrogen 35 mg/dL (8-26) Creatinine 1.6 mg/dL (0.7-1.3) Estimated GFR (Cockcroft-Gault) 43.2 BUN/Creatinine Ratio 22 (6-20) Glucose Level 312 mg/dL (70-99) Calcium Level 8.9 mg/dL (8.5-10.1) Total Bilirubin 0.4 mg/dL (0.2-1.0) Aspartate Amino Transf (AST/SGOT) 19 U/L (15-37) Alanine Aminotransferase (ALT/SGPT) 19 U/L (16-63) Alkaline Phosphatase 82 U/L (46-116) Total Protein 7.2 g/dL (6.4-8.2) Albumin 3.2 g/dL (3.4-5.0) Albumin/Globulin Ratio 0.8 (1.0-1.7) Test 03/03/19 13:45 03/03/19 15:04 03/03/19 17:13 03/03/19 20:14 Glucose (Fingerstick) 481 mg/dL (70-99) 429 mg/dL (70-99) 330 mg/dL (70-99) 308 mg/dL (70-99) Test 03/04/19 05:59 03/04/19 11:51 White Blood Count 17.9 x10^3/uL (4.0-11.0) Red Blood Count 3.62 x10^6/uL (4.30-5.70) Hemoglobin 10.8 g/dL (13.0-17.5) Hematocrit 33.7 % (39.0-53.0) Mean Corpuscular Volume 93 fL (79-100) Mean Corpuscular Hemoglobin 30 pg (25-35) Mean Corpuscular Hemoglobin Concent 32 g/dL (31-37) Red Cell Distribution Width 14.3 % (11.5-14.5) Platelet Count 196 x10^3/uL (140-400) Sodium Level 138 mmol/L (136-145) Potassium Level 4.6 mmol/L (3.5-5.1) Chloride Level 101 mmol/L (98-107) Carbon Dioxide Level 26 mmol/L (21-32) Anion Gap 11 (6-14) Blood Urea Nitrogen 49 mg/dL (8-26) Creatinine 1.4 mg/dL (0.7-1.3) Estimated GFR (Cockcroft-Gault) 50.4 Glucose Level 261 mg/dL (70-99) Calcium Level 8.6 mg/dL (8.5-10.1) Glucose (Fingerstick) 363 mg/dL (70-99) Physical Exams HEENT: Neck Supple W Full Motion Chest: Symmetric Lungs: Clear to Auscultation Heart: S1S2, RRR Abdomen: Soft N/T Extremities: No Edema Neurology: alert, oriented, follow commands Assessment Assessment 1. Syncope; ? dehydration/orthostasis contributing. No acute events on tele thus far. Orthostasis noted from lying to sitting yesterday. 2. CAD s/p CABG 2009. Cath 01/2019 with patent QUINN to LAD, patent SVG to diagonal and patent SVG to OM. 3. Chronic systolic heart failure, ICM; LVEF 40%. Clinically compensated. 4. AECOPD 5. Hypertension: hypotensive last night, otherwise controlled 6. CHARLEEN, dehydration; improved 7. Diabetes, II Recommendations Home medication list was reviewed; patient was on bisoprolol, lisinopril, spirolactone, and Lasix PRN. BP remains low end despite all antiHTN therapy being held. Agree with IVFs Repeat orthostatics now that patient is able to stand with RLE boot. CHINTAN ROBERTSON APRN Mar 04, 2019 15:54
[2019-03-04] MEDS: AMITRIPTYLINE HCL 25 MG TABLET PO SCH (20:33)
[2019-03-04] MEDS: QUEtiapine 100 MG TABLET. PO SCH (20:33)
[2019-03-04] MEDS: PRAZOSIN 1 MG CAPSULE. PO SCH (20:36)
[2019-03-04] MEDS: PRAZOSIN 5 MG CAPSULE. PO SCH (20:37)
[2019-03-04] MEDS: INSULIN GLARGINE SYRINGE. SQ SCH (20:44)
[2019-03-05 04:33] VITALS: BP 152/81
--- NOTE | 2019-03-05 04:47 | PN ---
DATE: SUBJECTIVE: The patient is sitting comfortably in his chair, in no apparent distress. He is awake, alert, feeling generally much improved, has been up and about. We did a CT of the chest with contrast, but with pulmonary angiogram as his V/Q scan had had intermediate probability for pulmonary embolism and had had history of syncopal episode and the findings showed that there is no CT evidence of pulmonary embolus. There is bilateral bronchitis. There is nonspecific bronchiolitis in the basilar right lower lobe. Recommended CT chest followup in 3 months after completion of medical therapy; ground glass opacity in the lingula, may be infectious, inflammatory. There is an 8 mm irregular nodule of the right lung apex, suggest ____, moderate upper lobe centrilobular emphysema, 2 mildly enlarged mediastinal lymph nodes; given pulmonary finding, the lymph nodes may be reactive. PHYSICAL EXAMINATION: GENERAL: When I examined him this afternoon, he looked well and was clearly in no apparent respiratory distress. No pallor, jaundice, cyanosis or thyromegaly. No jugular venous distention. No lower limb edema. VITAL SIGNS: His heart rate was 99, blood pressure was 102/67, temperature was 97.2, respiratory rate was 19 and oxygen saturation was 98% on 2 liters of oxygen. HEAD, EYES, EARS, NOSE AND THROAT: Showed normocephalic, atraumatic. NECK: Supple. HEART: Showed normal first and second heart sounds with no gallop, rub or murmur. CHEST: Clear to auscultation. No crepitation or rhonchi. ABDOMEN: Distended, soft, nontender. No guarding or rigidity. No organomegaly. All hernial orifices intact. Bowel sounds normal. NEUROLOGIC: He was awake, alert, responding appropriately. All cranial nerves are intact. He moves extremities without difficulty. He ambulates with a walking boot. His intake over the last 24 hours was 1890, output was 3350. LABORATORY DATA: Showed a white cell count of 17,900, hemoglobin 11, hematocrit 33, MCV 93 and platelet count of 196,000. His chemistry showed a serum sodium 138, potassium 4.6, chloride 101, bicarbonate 26, anion gap of 11, BUN 49, creatinine 1.4, estimated GFR was 50 mL per minute. Her glucose was 161, calcium was 8.6. Prothrombin time was 10.6, INR 1, aPTT was 25. D-dimer was high at 4.15. ASSESSMENT: 1. Syncopal episode, probably multifactorial. The patient was extensively investigated including carotid Doppler which showed no evidence of greater than 50% stenosis. 2. Bilateral lower extremity venous Doppler ultrasound was negative. V/Q scan was read as intermediate probability for pulmonary embolism; however, CT angio was negative for pulmonary emboli. 3. The patient is known to have chronic obstructive pulmonary disease. 4. Coronary artery disease, status post coronary artery bypass graft. 5. Chronic systolic congestive heart failure. 6. Hypertension. 7. Acute kidney injury, improving. 8. Type 2 diabetes mellitus, poorly controlled due to steroids. PLAN: My plan is to discontinue the therapeutic dose of Lovenox, cut down his steroids and will hopefully discharge him home tomorrow. YELENA GARCIA MD DR: BOSTON/michael JOB#: [id number] / [id number]
[2019-03-05 05:26] LABS: CALCIUM 8.7 mg/dL (8.5-10.1); CREATININE 1.1 mg/dL (0.7-1.3); GFR 66.6; POTASSIUM 4.6 mmol/L (3.5-5.1)
[2019-03-05] MEDS: IPRATRPIUM/ALBUTEROL 0.5/2.5MG 3 ML NEBU. NEB SCH ×3 (05:35→15:25)
[2019-03-05 08:00] VITALS: BP 110/62
[2019-03-05] MEDS: POTASSIUM CHLORIDE 20 MEQ TABLET.ER. PO SCH (08:00)
[2019-03-05] MEDS: methylPREDNISolone SOD SUCC PF 40 MG/ML VIAL. IV SCH (08:27)
[2019-03-05] MEDS: ASPIRIN ENTERIC COATED 81 MG TABLET.DR. PO SCH (08:27)
[2019-03-05] MEDS: glipiZIDE 5 MG TABLET PO SCH ×2 (08:27→17:26)
[2019-03-05] MEDS: MONTELUKAST 10 MG TABLET. PO SCH (08:27)
[2019-03-05] MEDS: GABAPENTIN 300 MG CAPSULE. PO SCH ×2 (08:28→14:35)
[2019-03-05] MEDS: LINAGLIPTIN 5 MG TABLET PO SCH (08:28)
[2019-03-05] MEDS: CHOLECALCIFEROL (VITAMIN D3) 1,000 UNIT TABLET PO SCH (08:28)
[2019-03-05] MEDS: FLUoxetine HCL 20 MG CAPSULE PO SCH (08:29)
[2019-03-05] MEDS: INSULIN LISPRO 300 UNITS/3 ML VIAL. SQ SCH ×6 (08:34→17:32)
[2019-03-05] MEDS ORDERED: ENOXAPARIN 40 MG/0.4 ML SYRINGE. SQ SCH (09:00)
[2019-03-05] MEDS: BUDESONIDE 0.5 MG/2 ML NEBU NEB SCH (09:10)
[2019-03-05 12:14] VITALS: BP 131/73
[2019-03-05 16:00] VITALS: BP 118/70
--- NOTE | 2019-03-05 19:04 | NUR ---
Patient left via wheelchair with his belongings. [facility] [employer] service provided the transportation. Patient was stable, alert and oriented.
--- NOTE | 2019-03-05 20:34 | DS ---
DATE OF DISCHARGE: HOSPITAL COURSE: The patient is a 68-year-old male patient, who was admitted with syncopal episode, was felt to be multifactorial. It transpired that the patient has been on multiple antihypertensive medications, diuretics, and he was clinically dehydrated, orthostatic. He was treated with IV fluid. He was also extremely wheezy. I did start him on steroid and did well his kidney function. His creatinine was 2.6 and came down to 1.1 and BUN came down from 61 to 37, it has been up and about. On admission, he also complained of right ankle pain. An x-ray showed that he has nondisplaced medial malleolar fracture and I did consult with Dr. Ferguson who recommended walking boot. The patient has stabilized, a decision was made to discharge him home with home health. I actually held his one of his diuretics. I held his bisoprolol as well as lisinopril. PHYSICAL EXAMINATION: GENERAL: When I examined him this afternoon, he was sitting comfortably in his recliner, in no apparent respiratory distress. He was slightly pale, but no jaundice, cyanosis or thyromegaly. No jugular venous distention. No limb edema. VITAL SIGNS: His heart rate was 93, blood pressure was 121/65, temperature was 97.2, respiratory rate was 19 and oxygen saturation was 97% on 3 liters of oxygen. HEAD, EYES, EARS, NOSE AND THROAT: Showed normocephalic, atraumatic. NECK: Supple. HEART: Showed normal first and second heart sounds. No gallop, rub or murmur. CHEST: Clear to auscultation. No crepitation or rhonchi. ABDOMEN: Distended, soft, nontender. NEUROLOGIC: He is definitely more awake, alert, responding appropriately. All cranial nerves intact. He moves extremities without difficulty. His intake over the last 24 hours was 2300, output was 2520. LABORATORY DATA: As of this morning, his white cell count was 17,900, hemoglobin 11, hematocrit 33, MCV 93 and platelet count of 196,000. His serum sodium 140, potassium 4.6, chloride 104, bicarbonate 28, anion gap of 8, BUN 37, creatinine 1.1, estimated GFR was 66 mL per minute, his glucose was 276, calcium was 8.7. DISCHARGE MEDICATIONS: The patient was discharged home with home health to continue on Tylenol 650 mg every 4 hours, albuterol sulfate 2 puffs every 4-6 hours, Alogliptin 25 mg daily, ammonium lactate applied topically twice a day, aspirin 81 mg once a day, Pulmicort 2 puffs twice a day, carboxymethylcellulose for Refresh Optive eyedrops 1 drop to both eyes 4 times a day, cyanocobalamin for vitamin B12 1000 mcg tablet once a day, diclofenac sodium 1 gram applied topically 3 times a day, Jardiance 12.5 mg daily, ergocalciferol 50,000 International Units once a week, fluoxetine 40 mg once a day, fluticasone propionate 2 sprays to each nostril daily, furosemide 40 mg once a day, gabapentin 300 mg 3 times a day, glipizide 20 mg twice a day, Xopenex 1 inhalation 4 times a day, montelukast for Singulair 10 mg once a day. He is on nicotine lozenges 2 mg every 2 hours as needed, nitroglycerin 0.4 mg sublingually every 5 minutes x 3, prazosin 7 mg at bedtime, quetiapine fumarate for Seroquel 400 mg at bedtime, ranitidine 150 mg twice a day, Crestor 40 mg once a day, saliva stimulant 1 mL every hour as needed, sodium chloride for saline spray 2 sprays to each nostril as needed, spironolactone 12.5 mg daily, Spiriva HandiHaler 1 inhalation once a day. FINAL DISCHARGE DIAGNOSES: 1. Syncopal episode, multifactorial, most likely due to dehydration, multiple antihypertensive medications and diuretics, resolved. 2. Acute kidney injury, improved. 3. Chronic obstructive pulmonary disease, coronary artery disease, status post coronary artery bypass graft surgery, chronic systolic congestive heart failure, hypertension, type 2 diabetes. YELENA GARCIA MD DR: BOSTON/michael JOB#: [id number] / [id number]
[2019-03-08] MEDS ORDERED: CHOLECALCIFEROL (VITAMIN D3) 50,000 UNIT CAPSULE PO SCH (09:00)
== END 2019-03-05 18:45 | disposition home health service (06) | DRG 640 ==
LOC: ER 00:28 → 1 SOUTH 00:45 → ICU 05:00
PROVIDERS: ADMIT Internal Medicine; ATTEND Internal Medicine
PROC: 02HV33Z Insertion of Infusion Device into Superior Vena Cava, Percutaneous Approach (ICD-10-PCS; principal; 2019-03-01)
DX: E86.0 Dehydration (principal); N17.0 Acute kidney failure with tubular necrosis; J44.1 Chronic obstructive pulmonary disease with (acute) exacerbation; I50.22 Chronic systolic (congestive) heart failure; I13.0 Hypertensive heart and chronic kidney disease with heart failure and stage 1 through stage 4 chronic kidney disease, or unspecified chronic kidney disease; J98.11 Atelectasis; J44.0 Chronic obstructive pulmonary disease with (acute) lower respiratory infection; I95.1 Orthostatic hypotension; D64.9 Anemia, unspecified; E03.9 Hypothyroidism, unspecified; E11.22 Type 2 diabetes mellitus with diabetic chronic kidney disease; E11.40 Type 2 diabetes mellitus with diabetic neuropathy, unspecified; E11.65 Type 2 diabetes mellitus with hyperglycemia; E66.9 Obesity, unspecified; E78.00 Pure hypercholesterolemia, unspecified; E78.5 Hyperlipidemia, unspecified; E86.1 Hypovolemia; F17.210 Nicotine dependence, cigarettes, uncomplicated; F25.9 Schizoaffective disorder, unspecified; F31.9 Bipolar disorder, unspecified; F43.10 Post-traumatic stress disorder, unspecified; F60.9 Personality disorder, unspecified; G47.00 Insomnia, unspecified; G89.29 Other chronic pain; I25.5 Ischemic cardiomyopathy; J31.0 Chronic rhinitis; K21.9 Gastro-esophageal reflux disease without esophagitis; M19.90 Unspecified osteoarthritis, unspecified site; M79.7 Fibromyalgia; N18.9 Chronic kidney disease, unspecified; N40.0 Benign prostatic hyperplasia without lower urinary tract symptoms; R29.6 Repeated falls; Z86.14 Personal history of Methicillin resistant Staphylococcus aureus infection; Z86.73 Personal history of transient ischemic attack (TIA), and cerebral infarction without residual deficits; Z99.81 Dependence on supplemental oxygen; Z95.1 Presence of aortocoronary bypass graft; W18.39XA Other fall on same level, initial encounter; Y93.89 Activity, other specified; Y92.89 Other specified places as the place of occurrence of the external cause; Y99.8 Other external cause status; Z79.899 Other long term (current) drug therapy; S82.55XA Nondisplaced fracture of medial malleolus of left tibia, initial encounter for closed fracture
CPT/HCPCS: 36415; 36556; 70450; 71045; 71275; 72125; 73562; 73610; 78582; 80048; 80053; 80076; 80307; 81001; 82550; 82947; 83690; 83735; 83880; 84443; 84484; 85025; 85027; 85379; 85610; 85651; 85730; 93005; 93880; 93970; 94640; 94760; 96361; 96365; 96372; 96374; 99292; A9540; A9558; G0238; J1650; J1815; J2920; J7030; J7050; J7120; J7620; J7626; Q9967; 97110; 97116; 97530; 99291-25

== ENCOUNTER 2019-03-07 00:14 | Emergency (ER) | payer SELFPAY ==
[~2019-03-07] VITALS: Ht 170.2 cm; Wt 111.8 kg
[~2019-03-07 00:14] MED LIST: ACET325T9 PO; ALOG25TA2 PO; AMIT25TA PO; AMMO57LO TP; ASPI81TA50 PO; BISO10TA PO; BUDE180A IH; CARB15DR3 EACHEYE; CHOL10003 PO; CRESTOR40 MG PO; CYAN-25 PO; DICL100G28 TP; EMPA25TA PO; ERGO500027 PO; FLUO40CA2 PO; FLUT16SP21 NS; FURO-69 PO; FURO40TA4 PO; GABA-586 PO; GLIP10TA13 PO; IPRA3AMP29 NEB; ISOS60TA2 PO; LISI40TA PO; MELO15TA23 PO; METO-247 PO; MONT10TA80 PO; NICO-479 BC; NITR0.4T22 SL; POTA20TA4 PO; PRAZ2CAP2 PO; PRAZ5CAP2 PO; PROAIR RESPICL90 MCG IH; QUET400T4 PO; RANI150T2 PO; SALI44.3 MM; SODI50SP NS; SPIR25TA5 PO; TIOT18CA IH; XOPENEX HFA15 GM IH; [UNRECOGNIZED DRUG - CODE] IH
--- NOTE | 2019-03-07 00:25 | ED.ADGEN ---
Past History Past Medical History: Anemia, Anxiety, Arthritis, Arrhythmia, Asthma, Bipolar, Bronchitis, CAD, CHF, Constipation, COPD, CVA, Depression, Diabetes, GERD, High Cholesterol, Heart Disease, Hypertension, Hypothyroid, Lung Disease, [place], Renal Disease, Schizophrenia, Stroke, TIA, Other Past Medical History Hypotension Past Surgical History: Coronary Bypass Surgery, Other Smoking: Cigarettes Alcohol Use: Occasionally Drug Use: None Adult General Chief Complaint Chief Complaint ".. It almost just like last time... I was watching a Murder mystery on TV... and I got up to go to bed... I got really dizzy.. maybe.. joni black out a little... . and I fell hitting my head again in same place... they took me to [facility].. and they refused me... again... "..." My cat Jhshanthi.. is going to be really pissed again....".. " I am not as confused this time... " HPI HPI Patient is a 68 year old male who presents with above hx and complaints dizzy and syncope. Pt. BP per paramedics was 70/systolic. Pt. presented by ambulance to [place], but was deferred to another hospital because of acute presentation. Pt. recently evaluated for similar presentation on 03/01. Pt. denies any change in meds. Pt. complaints of head injury at same location as prior head injury on 03/01. Pt. has contusion / Hematoma Rt. scalp. Patient states he had marked dizziness before he reports syncopal episode. Patient normally follows at [place] , was deferred at [facility]. The patient has COPD at 3 L. Does have a history of coronary artery disease with bypass, diabetes, CVA, and multiple medical issues. Review of Systems Review of Systems Constitutional: Denies fever or chills [] Eyes: Denies change in visual acuity, redness, or eye pain [] HENT: Denies nasal congestion or sore throat []Complaints of repeat head injury. Respiratory: Denies cough or shortness of breath [] Cardiovascular: No additional information not addressed in HPI [] GI: Denies abdominal pain, nausea, vomiting, bloody stools or diarrhea [] : Denies dysuria or hematuria [] Musculoskeletal: Denies back pain or joint pain [] Integument: Denies rash or skin lesions [] Neurologic: Complaints of headache, Denies focal weakness or sensory changes []Complaints of dizzy and syncope. Endocrine: Denies polyuria or polydipsia [] All other systems were reviewed and found to be within normal limits, except as documented in this note. Family History Family History Non-contributory Current Medications Current Medications Current Medications Medications (Trade) Dose Ordered Sig/Manjit Start Time Stop Time Status Last Admin Dose Admin Aspirin (Jorge Aspirin) 325 mg 1X ONCE 03/07/19 02:45 03/07/19 04:11 DC 03/07/19 03:51 325 MG Ceftriaxone Sodium 1 gm/ Sodium Chloride 50 ml @ 100 mls/hr 1X ONCE 03/07/19 04:15 03/07/19 04:44 DC 03/07/19 04:24 100 MLS/HR Ceftriaxone Sodium (Rocephin) 1 gm STK-MED ONCE 03/07/19 04:19 03/07/19 04:19 DC Enoxaparin Sodium (Lovenox 100mg Syringe) 100 mg 1X ONCE 03/07/19 02:45 03/07/19 04:11 DC 03/07/19 03:52 100 MG Lactated Ringer's 1,000 ml @ 3,000 mls/hr 1X ONCE 03/07/19 02:45 03/07/19 04:11 DC 03/07/19 02:45 3,000 MLS/HR Norepinephrine Bitartrate 8 mg/ Sodium Chloride 258 ml @ 21.633 mls/ hr CONT PRN 03/07/19 04:00 03/07/19 07:39 DC Sodium Chloride 500 ml @ As Directed STK-MED ONCE 03/07/19 04:19 03/07/19 04:19 DC Vancomycin HCl (Vanco Per Pharmacy) 1 each PRN DAILY PRN 03/07/19 04:00 03/07/19 07:39 DC Vancomycin HCl (Vancomycin) 1 gm STK-MED ONCE 03/07/19 04:19 03/07/19 04:19 DC Vancomycin HCl 1.5 gm/Sodium Chloride 500 ml @ 250 mls/hr 1X ONCE 03/07/19 04:00 03/07/19 05:59 UNV Vancomycin HCl 2 gm/Sodium Chloride 500 ml @ 250 mls/hr 1X ONCE 03/07/19 04:15 03/07/19 06:15 DC 03/07/19 04:34 250 MLS/HR Allergies Allergies Allergies Coded Allergies Type Severity Reaction Last Updated Verified Penicillins Allergy Unknown 03/01/19 Yes aripiprazole Allergy Unknown 03/01/19 Yes diazepam Allergy Unknown 03/01/19 Yes Physical Exam Physical Exam Constitutional: Moderate acute distress, non-toxic appearance. [] HENT: Normocephalic, contusion and hematoma right scalp and face, bilateral external ears normal, oropharynx moist, no oral exudates, nose normal. [] Eyes: PERRLA, EOMI, conjunctiva normal, no discharge. [] Neck: Normal range of motion, no tenderness, supple, no stridor. [] Cardiovascular: Regular Heart rate regular rhythm, no murmur, PMI to the left Lungs & Thorax: Bilateral breath sounds equal apex with scattered wheezes throu ghout, bilateral basilar crackles on auscultation [Has midline sternal scar. Abdomen: Bowel sounds normal, soft, no tenderness, no masses, no pulsatile masses. Obese.] Skin: Warm, diaphoretic,, no erythema, venous stasis] Back: No tenderness, no CVA tenderness. [] Extremities: Right ankle tenderness, no cyanosis, no clubbing, ROM intact, bilateral ankle edema. [] In the walking boot/cast on right ankle. Arthritic changes. Neurologic: Alert and oriented X 3, moves all extremities on request. Has slight decrease plantar sensory, no new focal deficits noted. [] Psychologic: Affect anxious, judgement normal, mood normal. []Patient's me ntation is much improved over prior exam on 03/01 Current Patient Data Vital Signs Vital Signs Date Time Temp Pulse Resp B/P (MAP) Pulse Ox O2 Delivery O2 Flow Rate FiO2 03/07/19 05:39 79 21 107/74 (85) 99 Nasal Cannula 3.0 03/07/19 00:30 98.2 Lab Results Laboratory Tests Test 03/07/19 01:15 03/07/19 05:45 White Blood Count 11.6 x10^3/uL (4.0-11.0) H Red Blood Count 3.70 x10^6/uL (4.30-5.70) L Hemoglobin 10.9 g/dL (13.0-17.5) L Hematocrit 34.0 % (39.0-53.0) L Mean Corpuscular Volume 92 fL (79-100) Mean Corpuscular Hemoglobin 30 pg (25-35) Mean Corpuscular Hemoglobin Concent 32 g/dL (31-37) Red Cell Distribution Width 14.9 % (11.5-14.5) H Platelet Count 186 x10^3/uL (140-400) Neutrophils (%) (Auto) 66 % (31-73) Lymphocytes (%) (Auto) 22 % (24-48) L Monocytes (%) (Auto) 10 % (0-9) H Eosinophils (%) (Auto) 2 % (0-3) Basophils (%) (Auto) 0 % (0-3) Neutrophils # (Auto) 7.6 x10^3uL (1.8-7.7) Lymphocytes # (Auto) 2.6 x10^3/uL (1.0-4.8) Monocytes # (Auto) 1.2 x10^3/uL (0.0-1.1) H Eosinophils # (Auto) 0.2 x10^3/uL (0.0-0.7) Basophils # (Auto) 0.0 x10^3/uL (0.0-0.2) Erythrocyte Sedimentation Rate 33 (0-15) H Prothrombin Time 10.4 SEC (9.4-11.4) Prothrombin Time INR 1.0 (0.9-1.1) Activated Partial Thromboplast Time 24 SEC (23-33) D-Dimer (Shalini) 0.94 mg/L (0.00-0.50) H Sodium Level 141 mmol/L (136-145) Potassium Level 4.0 mmol/L (3.5-5.1) Chloride Level 101 mmol/L (98-107) Carbon Dioxide Level 28 mmol/L (21-32) Anion Gap 12 (6-14) Blood Urea Nitrogen 30 mg/dL (8-26) H Creatinine 1.5 mg/dL (0.7-1.3) H Estimated GFR (Cockcroft-Gault) 46.5 Glucose Level 231 mg/dL (70-99) H Lactic Acid Level 2.4 mmol/L (0.4-2.0) H 1.0 mmol/L (0.4-2.0) Calcium Level 8.5 mg/dL (8.5-10.1) Magnesium Level 2.0 mg/dL (1.8-2.4) Total Bilirubin 0.3 mg/dL (0.2-1.0) Direct Bilirubin 0.1 mg/dL (0.0-0.2) Aspartate Amino Transferase (AST) 28 U/L (15-37) Alanine Aminotransferase (ALT) 37 U/L (16-63) Alkaline Phosphatase 67 U/L (46-116) Creatine Kinase 79 U/L (39-308) Troponin I Quantitative 0.612 ng/mL (0-0.055) H VD-Aqx-L-Type Natriuretic Peptide 77271 pg/mL (0-124) H Total Protein 5.9 g/dL (6.4-8.2) L Albumin 3.0 g/dL (3.4-5.0) L Lipase 67 U/L (73-393) L EKG EKG My interpretation EKG shows a supraventricular rhythm with intermittent ventricular block. Rate of 79.[] Radiology/Procedures Radiology/Procedures [][place] [address] IMAGING REPORT Signed PATIENT: PARMINDER EDMOND ACCOUNT: [id number] : 1950 LOCATION: ER AGE: 68 SEX: M EXAM STATUS: REG ER ORD. PHYSICIAN: ROLDAN WHITFIELD MD REASON: Fall PROCEDURE: CT HEAD AND CERVICAL SPINE WO CT Head W/O Contrast: History: Pain status post fall Comparison: none Axial images were obtained without contrast. There is moderate diffuse atrophy. There is no mass effect, extraaxial fluid collections or hydrocephalus. There is no gross bleed. Minimal, patchy periventricular and subcortical white matter hypoattenuation is seen. There is an old left frontal lobe stroke and an old right parietal lobe stroke. There is no focal loss of barron-white matter distinction to suggest acute ischemia, i.e. stroke. End impression CT C-Spine without contrast: Clinical History: Pain status post fall Technique: Axial helical images of the cervical spine were obtained without contrast, axial coronal and sagittal reconstruction was performed. Findings: There is no loss of vertebral body stature. There is no prevertebral soft tissue swelling. The vertebral bodies are well aligned. The C1-C2 relationship is normal. The visualized osseous structures appear normal. Impression: No acute findings. Clinical correlation suggested. End impression CT maxillofacial without contrast History: Status post fall Axial helical images of the face were obtained without contrast. Axial and coronal reconstruction was performed. The nasal septum is mostly midline. The ostiomeatal complexes are narrow but patent. The paranasal sinuses are clear. The visualized osseous structures appear intact. The orbits appear normal. The mandible is not well seen due to motion. Impression: No acute findings. PQRS Compliance Statement: One or more of the following individualized dose reduction techniques were utilized for this examination: 1. Automated exposure control 2. Adjustment of the mA and/or kV according to patient size 3. Use of iterative reconstruction technique Electronically signed by: Carlos Douglas III, MD (03/07/2019 2:06 AM) [facility] DICTATED AND SIGNED BY: CARLOS DOUGLAS III, MD DATE: 03/07/19 0206 CC: ROLDAN WHITFIELD MD; PCP,UNKNOWN ~ Course & Med Decision Making Course & Med Decision Making Pertinent Labs and Imaging studies reviewed. (See chart for details) Procedure note- Central line placement- need for central line placement for possible pressors and multiple blood draws.= Discussed risk and benefits of central line. Patient agreeable to procedure. Right IJ and subclavian area prepped with kit prep. Sterile technique used with closed mass gown had drapes. Lidocaine 21% injected on right IJ and subclavian area. Right IJ cannulated by Seldinger technique. Triple-lumen passed over a wire. Venous return all 3 por ts. Biopatch placed. Sutured. OpSite dressing. Chest x-ray postprocedure shows no pneumothorax and adequate placement of central line. Discussed presentation, testing and treatment plan with will be transfer to [facility] for further eval. and cardiology consult. Pt. to receive 30 mL of LR per kilo and will start coverage with antibiotics. For possible sirs/sepsis. Critical Care 90 min. [] Final Impression Final Impression 1. Syncopal 2. Hypotension 3. + Trop. 0.612 4. Elevated Lac. Acid 2.4 5. Leukocytosis 11.6 6. Anemia 10.9 Hgb 7. COPD- Oxygen dependent 3 Lit. NC[] 8. Elevated BUN and creatinine 30/1.5 9. Elevated D-dimer 0.94 10. Elevated Lactic Acid 2.4 11. Elevated Sed. Rate 33 12. Closed Head Injury Dragon Disclaimer Dragon Disclaimer This electronic medical record was generated, in whole or in part, using a voice recognition dictation system. Dragon Disclaimer This chart was dictated in whole or in part using Voice Recognition software in a busy, high-work load, and often noisy Emergency Department environment. It may contain unintended and wholly unrecognized errors or omissions. Dragon Disclaimer This chart was dictated in whole or in part using Voice Recognition software in a busy, high-work load, and often noisy Emergency Department environment. It may contain unintended and wholly unrecognized errors or omissions. ROLDAN WHITFIELD MD Mar 07, 2019 00:24
[2019-03-07] MEDS ORDERED: IV RINGERS SOLUTION,LACTATED 1,000 ML IV SCH (00:30)
[2019-03-07 01:40] LABS: BASO % 0 % (0-3); EOS # 0.2 x10^3/uL (0.0-0.7); EOS % 2 % (0-3); HEMOGLOBIN 10.9 g/dL (13.0-17.5); LYMPH # 2.6 x10^3/uL (1.0-4.8); LYMPH % 22 % (24-48); MEAN CORPUSCULAR HEMOGLOBIN 30 pg (25-35); MEAN CORPUSCULAR HGB CONC 32 g/dL (31-37); MEAN CORPUSCULAR VOLUME 92 fL (79-100); MONO # 1.2 x10^3/uL (0.0-1.1); MONO % 10 % (0-9); NEUT # 7.6 x10^3uL (1.8-7.7); NEUT % 66 % (31-73); PLATELET COUNT 186 x10^3/uL (140-400); RED CELL DISTRIBUTION WIDTH 14.9 % (11.5-14.5); WHITE BLOOD COUNT 11.6 x10^3/uL (4.0-11.0)
[2019-03-07 01:54] LABS: CALCIUM 8.5 mg/dL (8.5-10.1); CREATININE 1.5 mg/dL (0.7-1.3); DIRECT BILIRUBIN 0.1 mg/dL (0.0-0.2); GFR 46.5; TOTAL BILIRUBIN 0.3 mg/dL (0.2-1.0); TOTAL PROTEIN 5.9 g/dL (6.4-8.2)
--- NOTE | 2019-03-07 02:09 | RAD ---
CT Head W/O Contrast: History: Pain status post fall Comparison: none Axial images were obtained without contrast. There is moderate diffuse atrophy. There is no mass effect, extraaxial fluid collections or hydrocephalus. There is no gross bleed. Minimal, patchy periventricular and subcortical white matter hypoattenuation is seen. There is an old left frontal lobe stroke and an old right parietal lobe stroke. There is no focal loss of barron-white matter distinction to suggest acute ischemia, i.e. stroke. End impression CT C-Spine without contrast: Clinical History: Pain status post fall Technique: Axial helical images of the cervical spine were obtained without contrast, axial coronal and sagittal reconstruction was performed. Findings: There is no loss of vertebral body stature. There is no prevertebral soft tissue swelling. The vertebral bodies are well aligned. The C1-C2 relationship is normal. The visualized osseous structures appear normal. Impression: No acute findings. Clinical correlation suggested. End impression CT maxillofacial without contrast History: Status post fall Axial helical images of the face were obtained without contrast. Axial and coronal reconstruction was performed. The nasal septum is mostly midline. The ostiomeatal complexes are narrow but patent. The paranasal sinuses are clear. The visualized osseous structures appear intact. The orbits appear normal. The mandible is not well seen due to motion. Impression: No acute findings. PQRS Compliance Statement: One or more of the following individualized dose reduction techniques were utilized for this examination: 1. Automated exposure control 2. Adjustment of the mA and/or kV according to patient size 3. Use of iterative reconstruction technique Electronically signed by: Juan Arora III, MD (03/07/2019 2:06 AM) [id number]
[2019-03-07] MEDS: IV RINGERS SOLUTION,LACTATED 1,000 ML IV ONE (02:15)
[2019-03-07] MEDS ORDERED: IV NORMAL SALINE 500ML 1,000 ML IV ONE (02:15)
[2019-03-07 02:43] LABS: SEDIMENTATION RATE 33 (0-15)
[2019-03-07] MEDS ORDERED: ASPIRIN 325 MG TABLET PO ONE (02:45)
[2019-03-07] MEDS ORDERED: IV RINGERS SOLUTION,LACTATED 1,000 ML IV ONE (02:45)
[2019-03-07] MEDS ORDERED: ENOXAPARIN ** NOTE DOSE ** SYRINGE SQ ONE (02:45)
[2019-03-07] MEDS ORDERED: VANCOMYCIN 1.5 GM in IV NORMAL SALINE 500ML 500 ML IV ONE (04:00)
[2019-03-07] MEDS ORDERED: NOREPINEPHRINE BITARTRATE 8 MG in IV NORMAL SALINE 250ML 250 ML IV PRN (04:00)
[2019-03-07] MEDS ORDERED: VANCOMYCIN PER PHARMACY MC PRN (04:00)
[2019-03-07] MEDS ORDERED: VANCOMYCIN 2 GM in IV NORMAL SALINE 500ML 500 ML IV ONE (04:15)
[2019-03-07] MEDS ORDERED: IV NORMAL SALINE 50ML 50 ML ONE (04:18)
[2019-03-07] MEDS ORDERED: VANCOMYCIN 1 GM VIAL. ONE (04:19)
[2019-03-07] MEDS ORDERED: IV NORMAL SALINE 500ML 500 ML ONE (04:19)
[2019-03-07] MEDS ORDERED: cefTRIAXone SODIUM 1 GM VIAL ONE (04:19)
--- NOTE | 2019-03-07 05:31 | RAD ---
PORTABLE CHEST 1V, PORTABLE CHEST 1V Clinical History: Status post fall Technique: AP view of the chest was obtained at 03/07/2019 3:53 AM. Comparison: None. Findings: Mediastinal wires again seen. The heart and pulmonary vessels appear normal. Reticular opacities of lungs is likely chronic pulmonary fibrosis. Impression: Stable appearance the chest. End impression 1 view chest 4:16 AM: There has been interval placement of a right jugular line is tip is well-positioned in the mid SVC. There is hazy opacity in the lower right lung. There is mild perihilar reticular opacities. IMPRESSION: 1. Right basal infiltrate could be discoid atelectasis or pulmonary contusion. 2. Possible mild fluid overload. 3. Right jugular line well-positioned. No pneumothorax. Electronically signed by: Juan Arora III, MD (03/07/2019 5:28 AM) [id number]
[2019-03-07 05:39] VITALS: BP 107/74
== END 2019-03-07 07:39 | disposition short-term general hospital (02) ==
LOC: ER 00:14
DX: S00.03XA Contusion of scalp, initial encounter (principal); S00.83XA Contusion of other part of head, initial encounter; R55 Syncope and collapse; I95.9 Hypotension, unspecified; R74.0 Nonspecific elevation of levels of transaminase and lactic acid dehydrogenase [LDH]; D72.829 Elevated white blood cell count, unspecified; D64.9 Anemia, unspecified; J44.9 Chronic obstructive pulmonary disease, unspecified; R79.1 Abnormal coagulation profile; R70.0 Elevated erythrocyte sedimentation rate; R79.89 Other specified abnormal findings of blood chemistry; F41.9 Anxiety disorder, unspecified; M19.90 Unspecified osteoarthritis, unspecified site; F31.9 Bipolar disorder, unspecified; I25.810 Atherosclerosis of coronary artery bypass graft(s) without angina pectoris; I11.0 Hypertensive heart disease with heart failure; I50.9 Heart failure, unspecified; E11.9 Type 2 diabetes mellitus without complications; E78.00 Pure hypercholesterolemia, unspecified; E03.9 Hypothyroidism, unspecified; I25.2 Old myocardial infarction; F20.9 Schizophrenia, unspecified; F17.210 Nicotine dependence, cigarettes, uncomplicated; Z99.81 Dependence on supplemental oxygen; Z86.73 Personal history of transient ischemic attack (TIA), and cerebral infarction without residual deficits; Z86.2 Personal history of diseases of the blood and blood-forming organs and certain disorders involving the immune mechanism; Z88.0 Allergy status to penicillin; Z88.8 Allergy status to other drugs, medicaments and biological substances; W18.09XA Striking against other object with subsequent fall, initial encounter; Y93.89 Activity, other specified; Y92.89 Other specified places as the place of occurrence of the external cause; Y99.8 Other external cause status
CPT/HCPCS: 36415; 36556; 70450; 70486; 71045; 72125; 80048; 80076; 82550; 83605; 83690; 83735; 83880; 84443; 84484; 85025; 85379; 85610; 85651; 85730; 87040; 87205; 93005; 96361; 96365; 96366; 96372; 96375; 99291; 99292; J0696; J1650; J3370; J7040; J7120; 87077